=== PATIENT | male | born 1995 | race Caucasian/White ===

== ENCOUNTER 2018-05-17 14:04 | Emergency (ER) | payer SELFPAY ==
[2018-05-17 14:09] VITALS: BP 161/115; PULSE 90; RESP 17; TEMP 36.1; O2SAT 100
--- NOTE | 2018-05-17 15:07 | PC.NURSE ---
pt reports he has been depressed before and has had thoughts of how he could kill himself but he doesn't want to act on it. It feels like I am losing my mind. I've been depressed before but never this bad. pt denies hallucinations and delusions.
[2018-05-17 15:55] LABS: Add Manual Diff / Slide Review NO; Basophils Absolute Auto 100 /uL (0-100); Eosinophils Absolute Auto 300 /uL (0-450); Hematocrit 43.4 % (41-53); Hemoglobin 14.7 g/dL (13.5-17.5); Lymphocytes Absolute Auto 1900 /uL (1100-4500); Mean Corpuscular HGB Conc 33.9 % (30-36); Mean Corpuscular Hemoglobin 28.9 PG (26-34); Mean Corpuscular Volume 85.3 fL (80-100); Monocytes Absolute Auto 400 /uL (0-900); Neutrophils Absolute Auto 3900 /uL (1500-7000); Platelet Count 290 X10^3/uL (150-400); Red Blood Cell Count 5.09 X10^6/uL (4.5-5.9); Red Cell Distribution Width 13.5 % (11.6-14.8); White Blood Cell Count 6.7 X10^3/uL (4.5-11.0)
[2018-05-17 15:59] LABS: Acetaminophen < 10 ug/mL (10-30); Salicylate < 1.0 mg/dL (<20)
[2018-05-17 16:00] LABS: Alanine Aminotransferase 61 IU/L (21-72); Albumin 4.8 g/dL (3.5-5.0); Albumin Globulin Ratio 1.2 (1.0-2.8); Alkaline Phosphatase 94 U/L (38-126); Aspartate Aminotransferase 35 IU/L (17-59); BUN Creatinine Ratio 18.8 (6-22); Bilirubin Total 0.7 mg/dL (0.2-1.3); Blood Urea Nitrogen 15 mg/dL (9-20); Calcium 9.9 mg/dL (8.4-10.2); Carbon Dioxide 22 mmol/L (22-32); Chloride 102 mmol/L (98-107); Estimated Glomerular Filt Rate > 60.0 mL/min (>60); Ethanol (ETOH) < 10 mg/dL; Globulin 3.9 g/dL (1.7-4.1); Glucose 103 mg/dL (70-100); HEMOLYSIS < 15 (0-50); Potassium 4.4 mmol/L (3.4-5.1); Sodium 139 mmol/L (137-145); Total Protein 8.7 g/dL (6.3-8.2)
[2018-05-17] MEDS: ACETAMINOPHEN 325 MG TABLET 975 MG PO (16:06)
--- NOTE | 2018-05-17 16:15 | ED.PSYCH ---
HPI - Psych General Chief Complaint: Psychiatric Symptoms Stated Complaint: anxiety,emotional, pressure in head, spacy Time Seen by Provider: 05/17/18 15:58 Source: patient and family ( Significant other) Mode of arrival: ambulatory Limitations: no limitations History of Present Illness HPI Narrative: this is a 22-year-old male who comes to the emergency department with complaint of depression and suicidal thoughts. Patient states he does not wish to hurt or kill himself but couple days ago started having depressive symptoms. patient states he has had some issues with depression in the past but this was significantly more intense and for the last 3 or 4 days has felt much more depressed and tearful and not been able to improve. Patient had seen a counselor in the past when he was 10 or 11 after his mother from suicide. He has lost several family members. He does see speak with and see his grandmother regularly for emotional support. He also has a significant other who is in the room with him. Patient states that he has had thoughts about killing himself he does not have any distinct plan. He denies any wish to hurt himself and is coming in because he is having these thoughts and they are becoming more frequent. Patient isn't sure that he wants to take any medication, some he wants to just make sure that medically he is okay. He is not sure about any counseling at this time. He is also not insured currently so be difficult for him to have counseling. Related Data Previous Rx's Medication Instructions Recorded quetiapine [Seroquel] 12.5 mg PO BEDTIME #7 tab 05/17/18 Allergies Allergy/AdvReac Type Severity Reaction Status Date / Time No Known Drug Allergies Allergy Verified 05/17/18 17:39 Review of Systems Psychiatric Reports as per HPI, Reports depression, Denies auditory hallucinations, Reports hopelessness, Denies irritability, Reports anhedonia, Denies mood swings, Reports panic attacks, Denies paranoia, Denies visual hallucinations, Denies hallucinations, Denies tactile hallucinations, Denies homicidal ideation and Reports suicidal ideation PFS Social History Smoking Status: Former smoker alcohol intake: current substance use type: marijuana Exam Narrative Exam Narrative: GENERAL: Alert and oriented x three, obese male in mild distress. Patient is is intermittently tearful. HEENT: Head normocephalic, atraumatic, EOMI, pupils reactive, face symmetric, moist mucous membranes NECK: Supple, full range of motion CARDIOVASCULAR: Regular rate and rhythm without murmurs, rubs or gallops. RESPIRATORY: Breath sounds equal bilaterally, no wheezes rales or rhonchi. ABDOMEN: Soft, nontender. Normoactive bowel sounds all 4 quadrants. No guarding or rebound, rigidity, no mass : No CVA tenderness EXTREMITIES: Normal range of motion, no clubbing or edema. Neurovascularly intact Psych: depression, suicidal thoughts but no intent, no homicidal thoughts or intent, mild anxiety. Denies hallucinations tactile, visual or auditory. NEUROLOGICAL: Cranial nerves II through XII grossly intact. Moving all extremities SKIN: Warm, dry, no petechiae, no rashes or lesions. Initial Vital Signs Initial Vital Signs: Vital Signs Temperature 97 F L 05/17/18 14:09 Pulse Rate 90 05/17/18 14:09 Respiratory Rate 17 05/17/18 14:09 Blood Pressure 161/115 H 05/17/18 14:09 Pulse Oximetry 100 05/17/18 14:09 Course Orders Ordered: ED Orders 05/17/18 15:21 Consult to Circuit Tester Stat 05/17/18 15:35 Acetaminophen Stat Complete Blood Count AUTO DIFF Stat Comprehensive Metabolic Panel Stat Ethanol (ETOH) Stat Salicylate Stat Thyroid Stimulating Hormone Stat 05/17/18 16:45 Urine Drug Screen, Rapid Stat Urine Microscopic Stat Discontinued Medications Acetaminophen (Tylenol) 975 mg PO NOW ONE Stop: 05/17/18 15:43 Last Admin: 05/17/18 16:06 Dose: 975 mg Quetiapine Fumarate (Seroquel) 12.5 mg PO NOW ONE Stop: 05/17/18 16:16 Last Admin: 05/17/18 16:23 Dose: 12.5 mg Vital Signs - 8 hr 05/17/18 14:09 05/17/18 17:50 Temperature 97 F L Pulse Rate 90 86 Respiratory Rate 17 20 Blood Pressure 161/115 H Blood Pressure [Left Arm] 150/79 H Pulse Oximetry 100 96 MDM - Psych Lab Data Attestation: I reviewed the patient's lab results. Result diagrams: 05/17/18 15:35 05/17/18 15:35 Lab Results 05/17/18 05/17/18 05/17/18 Range/Units 15:35 15:35 15:35 WBC 6.7 (4.5-11.0) X10^3/uL RBC 5.09 (4.5-5.9) X10^6/uL Hgb 14.7 (13.5-17.5) g/dL Hct 43.4 (41-53) % MCV 85.3 (80-100) fL MCH 28.9 (26-34) PG MCHC 33.9 (30-36) % RDW 13.5 (11.6-14.8) % Plt Count 290 (150-400) X10^3/uL Neut % (Auto) 59.0 (50-75) % Lymph % (Auto) 29.0 (25-40) % [place] % (Auto) 6.0 (3-14) % Eos % (Auto) 5.0 H (2-4) % Baso % (Auto) 1.0 (0-2) % Neut # (Auto) 3900 (3497-0892) /uL Lymph # (Auto) 1900 (0028-4387) /uL [place] # (Auto) 400 (0-900) /uL Eos # (Auto) 300 (0-450) /uL Baso # (Auto) 100 (0-100) /uL Sodium 139 (137-145) mmol/L Potassium 4.4 (3.4-5.1) mmol/L Chloride 102 (98-107) mmol/L Carbon Dioxide 22 (22-32) mmol/L BUN 15 (9-20) mg/dL Creatinine 0.80 (0.66-1.25) mg/dL Estimated GFR > 60.0 (>60) mL/min BUN/Creatinine Ratio 18.8 (6-22) Glucose 103 H (70-100) mg/dL Calcium 9.9 (8.4-10.2) mg/dL Total Bilirubin 0.7 (0.2-1.3) mg/dL AST 35 (17-59) IU/L ALT 61 (21-72) IU/L Alkaline Phosphatase 94 (38-126) U/L Total Protein 8.7 H (6.3-8.2) g/dL Albumin 4.8 (3.5-5.0) g/dL Globulin 3.9 (1.7-4.1) g/dL Albumin/Globulin Ratio 1.2 (1.0-2.8) TSH (0.47-4.68) uIU/mL Urine RBC (0-5/HPF) Urine WBC (0-5/HPF) Urine Bacteria (None) Ur Culture Indicated? Salicylates < 1.0 (<20) mg/dL Urine Opiates Screen (Negative) Ur Oxycodone Screen (Negative) Urine Methadone Screen (Negative) Acetaminophen < 10 L (10-30) ug/mL Ur Barbiturates Screen (Negative) U Tricyclic Antidepress (Negative) Ur Phencyclidine Scrn (Negative) Ur Amphetamines Screen (Negative) U Methamphetamines Scrn (Negative) Ur MDMA Scrn (Ecstasy) (Negative) U Benzodiazepines Scrn (Negative) Urine Cocaine Screen (Negative) U Marijuana (THC) Screen (Negative) Ethyl Alcohol < 10 mg/dL 05/17/18 05/17/18 05/17/18 Range/Units 15:35 16:45 16:45 WBC (4.5-11.0) X10^3/uL RBC (4.5-5.9) X10^6/uL Hgb (13.5-17.5) g/dL Hct (41-53) % MCV (80-100) fL MCH (26-34) PG MCHC (30-36) % RDW (11.6-14.8) % Plt Count (150-400) X10^3/uL Neut % (Auto) (50-75) % Lymph % (Auto) (25-40) % [place] % (Auto) (3-14) % Eos % (Auto) (2-4) % Baso % (Auto) (0-2) % Neut # (Auto) (5261-9962) /uL Lymph # (Auto) (6340-9207) /uL [place] # (Auto) (0-900) /uL Eos # (Auto) (0-450) /uL Baso # (Auto) (0-100) /uL Sodium (137-145) mmol/L Potassium (3.4-5.1) mmol/L Chloride (98-107) mmol/L Carbon Dioxide (22-32) mmol/L BUN (9-20) mg/dL Creatinine (0.66-1.25) mg/dL Estimated GFR (>60) mL/min BUN/Creatinine Ratio (6-22) Glucose (70-100) mg/dL Calcium (8.4-10.2) mg/dL Total Bilirubin (0.2-1.3) mg/dL AST (17-59) IU/L ALT (21-72) IU/L Alkaline Phosphatase (38-126) U/L Total Protein (6.3-8.2) g/dL Albumin (3.5-5.0) g/dL Globulin (1.7-4.1) g/dL Albumin/Globulin Ratio (1.0-2.8) TSH 1.21 (0.47-4.68) uIU/mL Urine RBC 5-10/hpf H (0-5/HPF) Urine WBC None seen (0-5/HPF) Urine Bacteria None seen (None) Ur Culture Indicated? Cult not indicated Salicylates (<20) mg/dL Urine Opiates Screen Negative (Negative) Ur Oxycodone Screen Negative (Negative) Urine Methadone Screen Negative (Negative) Acetaminophen (10-30) ug/mL Ur Barbiturates Screen Negative (Negative) U Tricyclic Antidepress Negative (Negative) Ur Phencyclidine Scrn Negative (Negative) Ur Amphetamines Screen Negative (Negative) U Methamphetamines Scrn Negative (Negative) Ur MDMA Scrn (Ecstasy) Negative (Negative) U Benzodiazepines Scrn Positive H (Negative) Urine Cocaine Screen Negative (Negative) U Marijuana (THC) Screen Positive H (Negative) Ethyl Alcohol mg/dL Urine Dip Bedside Urine Glucose Negative Bedside Urine Bilirubin - Negative Bedside Urine Ketone - Negative Urine Specific [place] 1.030 Bedside Urine Occult Blood ++ Bedside Urine pH 5.5 Bedside Urine Protein +/- 15 Bedside Urine Urobilinogen - Negative Bedside Urine Nitrite - Negative Bedside Urine Leukocytes - Negative Esterase MDM Narrative Medical decision making narrative: the patient is having suicidal thoughts but no intent and is expressly clear that he does not wish to kill himself which is why he came today. Basic blood work does not show any acute changes , it was positive for benzos and THC which patient stated he has both used recently.. Patient had I did discuss and he was willing to try some Seroquel 12.5 mg which he did find a bit helpful. We discussed trying this for short-term as an outpatient as other medications such as an SSRI take several weeks and I think this patient would benefit something a little bit quicker. He was given some coupons as they do not have insurance at this time. Patient also was counseled by the community mental health social worker here in the emergency department and setup with the CPAP 18 which he has already contacted on set up for follow-up tomorrow. Patient is also willing to contract for safety and to return. He does have firearms in the home they are locked up and he is willing to give the only mulligan to his or his grandmother who lives outside the home. He also drinks fairly regularly and we discussed that he is trying to decrease the amount of alcohol he is drinking currently. At this time they patient and his feel that he is safe to return and he is aware that he can return here at any time, he can contact the CP team or the suicide hotline which is also the [facility] number. Discharge Plan Departure Patient Disposition: Home Clinical Impression: Suicidal ideation, Depression Discharge Date/Time: 05/17/18 18:52 Interventions: ED Discharge Assessment Last Done: 05/17/18 18:50 Instructions: DI for Suicidal Ideation-Adult Activity Restrictions/Additional Instructions: Follow up with the CP team for your appointment. Call to verify her appointment time as needed take Seroquel once daily before bed. This medication can be sedating do not drive, perform hazards activities or make any major decisions while taking it. Return to the emergency department if you are having worsening depression, if you are having the thoughts or urge to hurt or kill yourself, hurt or kill others or other new or concerning symptoms, if you are having any hallucinations or other new changes. If you're feeling suicidal or having suicidal thoughts, contact the suicide hotline: . Prescriptions: New quetiapine [Seroquel] 25 mg tablet 12.5 mg PO BEDTIME Qty: 7 RF: 0
--- NOTE | 2018-05-17 16:19 | ED_ITS ---
HPI - Psych General Chief Complaint: Psychiatric Symptoms Stated Complaint: anxiety,emotional, pressure in head, spacy Time Seen by Provider: 05/17/18 15:58 Source: patient and family ( Significant other) Mode of arrival: ambulatory Limitations: no limitations History of Present Illness HPI Narrative: this is a 22-year-old male who comes to the emergency department with complaint of depression and suicidal thoughts. Patient states he does not wish to hurt or kill himself but couple days ago started having depressive symptoms. patient states he has had some issues with depression in the past but this was significantly more intense and for the last 3 or 4 days has felt much more depressed and tearful and not been able to improve. Patient had seen a counselor in the past when he was 10 or 11 after his mother from suicide. He has lost several family members. He does see speak with and see his gr andmother regularly for emotional support. He also has a significant other who is in the room with him. Patient states that he has had thoughts about killing himself he does not have any distinct plan. He denies any wish to hurt himself and is coming in because he is having these thoughts and they are becoming more frequent. Patient isn't sure that he wants to take any medication, some he want s to just make sure that medically he is okay. He is not sure about any counseling at this time. He is also not insured currently so be difficult for him to have counseling. Related Data Previous Rx's Medication Instructions Recorded quetiapine [Seroquel] 12.5 mg PO BEDTIME #7 tab 05/17/18 Allergies Allergy/AdvReac Type Severity Reaction Status Date / Time No Known Drug Allergies Allergy Verified 05/17/18 17:39 Review of Systems Psychiatric Reports as per HPI, Reports depression, Denies auditory hallucinations, Reports hopelessness, Denies irritability, Reports anhedonia, Denies mood swings, Reports panic attacks, Denies paranoia, Denies visual hallucinations, Denies hallucinations, Denies tactile hallucinations, Denies homicidal ideation and Reports suicidal ideation PFS Social History Smoking Status: Former smoker alcohol intake: current substance use type: marijuana Exam Narrative Exam Narrative: GENERAL: Alert and oriented x three, obese male in mild distress. Patient is is intermittently tearful. HEENT: Head normocephalic, atraumatic, EOMI, pupils reactive, face symmetric, moist mucous membranes NECK: Supple, full range of motion CARDIOVASCULAR: Regular rate and rhythm without murmurs, rubs or gallops. RESPIRATORY: Breath sounds equal bilaterally, no wheezes rales or rhonchi. ABDOMEN: Soft, nontender. Normoactive bowel sounds all 4 quadrants. No guarding or rebound, rigidity, no mass : No CVA tenderness EXTREMITIES: Normal range of motion, no clubbing or edema. Neurovascularly intact Psych: depression, suicidal thoughts but no intent, no homicidal thoughts or intent, mild anxiety. Denies hallucinations tactile, visual or auditory. NEUROLOGICAL: Cranial nerves II through XII grossly intact. Moving all extr emities SKIN: Warm, dry, no petechiae, no rashes or lesions. Initial Vital Signs Initial Vital Signs: Vital Signs Temperature 97 F L 05/17/18 14:09 Pulse Rate 90 05/17/18 14:09 Respiratory Rate 17 05/17/18 14:09 Blood Pressure 161/115 H 05/17/18 14:09 Pulse Oximetry 100 05/17/18 14:09 Course Orders Ordered: ED Orders 05/17/18 15:21 Consult to Spare Parts Clerk Stat 05/17/18 15:35 Acetaminophen Stat Complete Blood Count AUTO DIFF Stat Comprehensive Metabolic Panel Stat Ethanol (ETOH) Stat Salicylate Stat Thyroid Stimulating Hormone Stat 05/17/18 16:45 Urine Drug Screen, Rapid Stat Urine Microscopic Stat Discontinued Medications Acetaminophen (Tylenol) 975 mg PO NOW ONE Stop: 05/17/18 15:43 Last Admin: 05/17/18 16:06 Dose: 975 mg Quetiapine Fumarate (Seroquel) 12.5 mg PO NOW ONE Stop: 05/17/18 16:16 Last Admin: 05/17/18 16:23 Dose: 12.5 mg Vital Signs - 8 hr 05/17/18 14:09 05/17/18 17:50 Temperature 97 F L Pulse Rate 90 86 Respiratory Rate 17 20 Blood Pressure 161/115 H Blood Pressure [Left Arm] 150/79 H Pulse Oximetry 100 96 MDM - Psych Lab Data Attestation: I reviewed the patient's lab results. Result diagrams: 05/17/18 15:35 05/17/18 15:35 Lab Results 05/17/18 05/17/18 05/17/18 Range/Units 15:35 15:35 15:35 WBC 6.7 (4.5-11.0) X10^3/uL RBC 5.09 (4.5-5.9) X10^6/uL Hgb 14.7 (13.5-17.5) g/dL Hct 43.4 (41-53) % MCV 85.3 (80-100) fL MCH 28.9 (26-34) PG MCHC 33.9 (30-36) % RDW 13.5 (11.6-14.8) % Plt Count 290 (150-400) X10^3/uL Neut % (Auto) 59.0 (50-75) % Lymph % (Auto) 29.0 (25-40) % [place] % (Auto) 6.0 (3-14) % Eos % (Auto) 5.0 H (2-4) % Baso % (Auto) 1.0 (0-2) % Neut # (Auto) 3900 (7510-4839) /uL Lymph # (Auto) 1900 (1718-9654) /uL [place] # (Auto) 400 (0-900) /uL Eos # (Auto) 300 (0-450) /uL Baso # (Auto) 100 (0-100) /uL Sodium 139 (137-145) mmol/L Potassium 4.4 (3.4-5.1) mmol/L Chloride 102 (98-107) mmol/L Carbon Dioxide 22 (22-32) mmol/L BUN 15 (9-20) mg/dL Creatinine 0.80 (0.66-1.25) mg/dL Estimated GFR > 60.0 (>60) mL/min BUN/Creatinine Ratio 18.8 (6-22) Glucose 103 H (70-100) mg/dL Calcium 9.9 (8.4-10.2) mg/dL Total Bilirubin 0.7 (0.2-1.3) mg/dL AST 35 (17-59) IU/L ALT 61 (21-72) IU/L Alkaline Phosphatase 94 (38-126) U/L Total Protein 8.7 H (6.3-8.2) g/dL Albumin 4.8 (3.5-5.0) g/dL Globulin 3.9 (1.7-4.1) g/dL Albumin/Globulin Ratio 1.2 (1.0-2.8) TSH (0.47-4.68) uIU/mL Urine RBC (0-5/HPF) Urine WBC (0-5/HPF) Urine Bacteria (None) Ur Culture Indicated? Salicylates < 1.0 (<20) mg/dL Urine Opiates Screen (Negative) Ur Oxycodone Screen (Negative) Urine Methadone Screen (Negative) Acetaminophen < 10 L (10-30) ug/mL Ur Barbiturates Screen (Negative) U Tricyclic Antidepress (Negative) Ur Phencyclidine Scrn (Negative) Ur Amphetamines Screen (Negative) U Methamphetamines Scrn (Negative) Ur MDMA Scrn (Ecstasy) (Negative) U Benzodiazepines Scrn (Negative) Urine Cocaine Screen (Negative) U Marijuana (THC) Screen (Negative) Ethyl Alcohol < 10 mg/dL 05/17/18 05/17/18 05/17/18 Range/Units 15:35 16:45 16:45 WBC (4.5-11.0) X10^3/uL RBC (4.5-5.9) X10^6/uL Hgb (13.5-17.5) g/dL Hct (41-53) % MCV (80-100) fL MCH (26-34) PG MCHC (30-36) % RDW (11.6-14.8) % Plt Count (150-400) X10^3/uL Neut % (Auto) (50-75) % Lymph % (Auto) (25-40) % [place] % (Auto) (3-14) % Eos % (Auto) (2-4) % Baso % (Auto) (0-2) % Neut # (Auto) (6324-1987) /uL Lymph # (Auto) (9325-9754) /uL [place] # (Auto) (0-900) /uL Eos # (Auto) (0-450) /uL Baso # (Auto) (0-100) /uL Sodium (137-145) mmol/L Potassium (3.4-5.1) mmol/L Chloride (98-107) mmol/L Carbon Dioxide (22-32) mmol/L BUN (9-20) mg/dL Creatinine (0.66-1.25) mg/dL Estimated GFR (>60) mL/min BUN/Creatinine Ratio (6-22) Glucose (70-100) mg/dL Calcium (8.4-10.2) mg/dL Total Bilirubin (0.2-1.3) mg/dL AST (17-59) IU/L ALT (21-72) IU/L Alkaline Phosphatase (38-126) U/L Total Protein (6.3-8.2) g/dL Albumin (3.5-5.0) g/dL Globulin (1.7-4.1) g/dL Albumin/Globulin Ratio (1.0-2.8) TSH 1.21 (0.47-4.68) uIU/mL Urine RBC 5-10/hpf H (0-5/HPF) Urine WBC None seen (0-5/HPF) Urine Bacteria None seen (None) Ur Culture Indicated? Cult not indicated Salicylates (<20) mg/dL Urine Opiates Screen Negative (Negative) Ur Oxycodone Screen Negative (Negative) Urine Methadone Screen Negative (Negative) Acetaminophen (10-30) ug/mL Ur Barbiturates Screen Negative (Negative) U Tricyclic Antidepress Negative (Negative) Ur Phencyclidine Scrn Negative (Negative) Ur Amphetamines Screen Negative (Negative) U Methamphetamines Scrn Negative (Negative) Ur MDMA Scrn (Ecstasy) Negative (Negative) U Benzodiazepines Scrn Positive H (Negative) Urine Cocaine Screen Negative (Negative) U Marijuana (THC) Screen Positive H (Negative) Ethyl Alcohol mg/dL Urine Dip Bedside Urine Glucose Negative Bedside Urine Bilirubin - Negative Bedside Urine Ketone - Negative Urine Specific [place] 1.030 Bedside Urine Occult Blood ++ Bedside Urine pH 5.5 Bedside Urine Protein +/- 15 Bedside Urine Urobilinogen - Negative Bedside Urine Nitrite - Negative Bedside Urine Leukocytes - Negative Esterase MDM Narrative Medical decision making narrative: the patient is having suicidal thoughts but no intent and is expressly clear that he does not wish to kill himself which is why he came today. Basic blood work does not show any acute changes , it was positive for benzos and THC which patient stated he has both used recently.. Patient had I did discuss and he was willing to try some Seroquel 12.5 mg which he did find a bit helpful. We discussed trying this for short-term as an outpatient as other medications such as an SSRI take several weeks and I think this patient would benefit something a little bit quicker. He was given some coupons as they do not have insurance at this time. Patient also was counseled by the social work supervisor here in the emergency department and setup with the CPAP 18 which he has already contacted on set up for follow-up tomorrow. Patient is also willing to contract for safety and to return. He does have firearms in the home they are locked up and he is willing to give the only mulligan to his or his grandmother who lives outside the home. He also drinks fairly regularly and we discussed that he is trying to decrease the amount of alcohol he is drinking currently. At this time they patient and his feel that he is safe to return and he is aware that he can return here at any time, he can contact the CP team or the suicide hotline which is also the [facility] number. Discharge Plan Departure Patient Disposition: Home Clinical Impression: Suicidal ideation, Depression Discharge Date/Time: 05/17/18 18:52 Interventions: ED Discharge Assessment Last Done: 05/17/18 18:50 Instructions: DI for Suicidal Ideation-Adult Activity Restrictions/Additional Instructions: Follow up with the CP team for your appointment. Call to verify her appoi ntment time as needed take Seroquel once daily before bed. This medication can be sedating do not drive, perform hazards activities or make any major decisions while taking it. Return to the emergency department if you are having worsening depression, if you are having the thoughts or urge to hurt or kill yourself, hurt or kill others or other new or concerning symptoms, if you are having any hallucinations or other new changes. If you're feeling suicidal or having suicidal thoughts, contact the suicide hotline: . Prescriptions: New quetiapine [Seroquel] 25 mg tablet 12.5 mg PO BEDTIME Qty: 7 RF: 0
[2018-05-17] MEDS: QUETIAPINE 25 MG TABLET 12.5 MG PO (16:23)
[2018-05-17 16:41] LABS: Thyroid Stimulating Hormone 1.21 uIU/mL (0.47-4.68)
[2018-05-17 16:56] LABS: Bacteria Urine None Seen; WBC Urine None Seen (0-5/HPF)
[2018-05-17 17:01] LABS: Urine Amphetamines Negative (Negative); Urine Barbiturates Negative (Negative); Urine Benzodiazepines Positive (Negative); Urine Cocaine Negative (Negative); Urine MDMA Negative (Negative); Urine Methadone Negative (Negative); Urine Methamphetamines Negative (Negative); Urine Morphine/Opi cutoff 2000 Negative (Negative); Urine Oxycodone Negative (Negative); Urine Phencyclidine Negative (Negative); Urine Tetrahydrocannabinol Positive (Negative); Urine Tricyclic Antidepressant Negative (Negative)
[2018-05-17 17:04] LABS: Culture Indicated Urine Cult Not Indicated; RBC Urine 5-10/HPF (0-5/HPF)
[2018-05-17 17:50] VITALS: BP 150/79; PULSE 86; RESP 20; O2SAT 96
--- NOTE | 2018-05-17 19:53 | CM.SWNOTE ---
Description: Suicidal Ideation Activity: [employer] met with pt after he presented to the ER for worsening depression and suicial ideation. He denies a plan or intent to harm himself at this time, however felt that he has had thoughts of wanting to for the last 2-days. He stated that he did not want any counseling, and just wanted something to feel better tonight, then go home. He has been having insomnia, and uses both alcohol and cannabis to sleep and relax. He has no insurance, and states that he makes too much money at this job to qualify for Medicaid. He also states that he cannot afford the $100 for [employer]educ[employer]. He does have an aunt that is a chemical dependency counselor, and well as a grandmother as his primary supports. He and his girlfriend reside with her mother, he has no form of transportation at this time. [employer] had recommended f/u with his primary care doctor for antidepressant medication evaluation, however he hasn't had one for several months. His girlfriend reportedly also has significant mental health issues. Grief was an underlying theme due to multiple losses, including pt's mother's by suicide. [employer] provided counseling and encouragement for pt to continue to consider counseling, and assisted him in speaking with the [facility] team while in the ER. Plan: Pt was treated in the ER and discharged home, with the plan for [facility] to call him later tonight, and to meet with pt face to face tomorrow. Pt presented as calm and voiced feeling safe for a home discharge.
== END 2018-05-17 18:52 | disposition home or self-care (01) ==
PROVIDERS: Emergency Provider Emergency Medicine
DX: F32.9 Major depressive disorder, single episode, unspecified (principal); R45.851 Suicidal ideations
CPT/HCPCS: 80053; 80305; 80320; 80329; 81003; 81015; 84443; 85025; 99283; G0480

== ENCOUNTER 2018-05-25 10:02 | Emergency (ER) | payer SELFPAY ==
[2018-05-25 10:11] VITALS: BP 180/117; PULSE 102; RESP 20; TEMP 36.6; O2SAT 95
--- NOTE | 2018-05-25 12:11 | ED.RECABL ---
HPI - Recheck/Abnormal Lab/Rx <Cristina Blair PA-C - Last Filed: 05/25/18 21:40> General Chief Complaint: Recheck/Abnormal Lab/Rx Stated Complaint: medication refill Time Seen by Provider: 05/25/18 12:09 Source: patient Mode of arrival: ambulatory Limitations: no limitations History of Present Illness HPI narrative: This 22-year-old male returns to ED for refill on Seroquel. He was seen here last week with depression and suicidal ideation. He states that he is since learned there are multiple extended family members with depression. His mother committed suicide after multiple attempts but he does not know her specific mental health history, does not know whether any bipolar depression or psychotic disorders in the family. He states that he is significantly improved from last week. He states that he feels like the Seroquel has helped ?level him out?. He states that it helps with his mood swings and anger, and he is able to cope better and think about things more rationally including feeling suicidal. He states that he is sleeping well, maybe some minimal grogginess in the morning but otherwise no side effects. He does not feel like he needs to increase the dose. He he states that he feels like he is significantly improved, not acutely suicidal now, and is actually on the phone with the crisis center when I go to see him. He is continuing to work with them on getting set up with mental health providers as well as primary care (planning to return to [facility] where he was seen in the past). 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 He is hoping to have that set up next week but would like to get a longer refill in case it takes more time to get in to PCP. He denies any new complaints today Related Data Previous Rx's Medication Instructions Recorded quetiapine [Seroquel] 12.5 mg PO BEDTIME #7 tab 05/17/18 quetiapine 25 mg PO BEDTIME #30 tab 05/25/18 Allergies Allergy/AdvReac Type Severity Reaction Status Date / Time No Known Drug Allergies Allergy Verified 05/17/18 17:39 Review of Systems <Cristina Blair PA-C - Last Filed: 05/25/18 21:40> Review of Systems ROS Unobtainable: All systems reviewed & are unremarkable except as noted in HPI and below PFSH <Cristina Blair PA-C - Last Filed: 05/25/18 21:40> Medical History Depression (Chronic) Chronic back pain (Chronic) Surgical History No pertinent past surgical history (Chronic) Family History Mother Depression Social History Smoking Status: Former smoker alcohol intake: current substance use type: marijuana Family History Mother Depression Social History Smoking Status: Former smoker alcohol intake: current substance use type: marijuana Exam <Cristina Blair PA-C - Last Filed: 05/25/18 21:40> Narrative Exam Narrative: GENERAL APPEARANCE: Patient sitting comfortably, in no distress. LUNGS: Clear to auscultation bilaterally. HEART: Rate and rhythm regular without murmur, normal S1 and S2, no S3 or S4. PSYCH: Maintains good eye contact and responds to questions appropriately, normal affect Initial Vital Signs Initial Vital Signs: Vital Signs Temperature 97.8 F 05/25/18 10:11 Pulse Rate 102 H 05/25/18 10:11 Respiratory Rate 20 05/25/18 10:11 Blood Pressure 180/117 H 05/25/18 10:11 Pulse Oximetry 95 05/25/18 10:11 <Terri Lott DO - Last Filed: 05/26/18 07:37> Initial Vital Signs Initial Vital Signs: Vital Signs Temperature 97.8 F 05/25/18 10:11 Pulse Rate 102 H 05/25/18 10:11 Respiratory Rate 20 05/25/18 10:11 Blood Pressure 180/117 H 05/25/18 10:11 Pulse Oximetry 95 05/25/18 10:11 Course <Cristina Blair PA-C - Last Filed: 05/25/18 21:40> Vital Signs - 8 hr 05/25/18 10:11 Temperature 97.8 F Pulse Rate 102 H Respiratory Rate 20 Blood Pressure 180/117 H Pulse Oximetry 95 <Terri Lott DO - Last Filed: 05/26/18 07:37> Vital Signs - 8 hr 05/25/18 10:11 Temperature 97.8 F Pulse Rate 102 H Respiratory Rate 20 Blood Pressure 180/117 H Pulse Oximetry 95 Discharge Plan Departure Patient Disposition: Home Clinical Impression: Encounter for medication refill Depression Qualifiers: Depression Type: unspecified Qualified Code(s): F32.9 - Major depressive disorder, single episode, unspecified Discharge Date/Time: 05/25/18 13:19 Interventions: ED Discharge Assessment Last Done: 05/25/18 13:16 Instructions: DI for Depression -- Adult Activity Restrictions/Additional Instructions: I am glad to see that you are feeling better and that the medicine is helping you. As we talked about, you should return if you start feeling acutely worse or suicidal again. Please make sure you continue to talk with the crisis center coordinators regarding your insurance, and also call the insurance benefits coordinators here at the hospital on Sunday. I have sent in a 1 month prescription for your Quetiapine to [facility] for you as it make take a few more weeks for [facility] to [facility]. Prescriptions: New quetiapine 25 mg tablet 25 mg PO BEDTIME Qty: 30 RF: 0 No Action quetiapine [Seroquel] 25 mg tablet 12.5 mg PO BEDTIME Qty: 7 RF: 0 Referrals: [facility] [Provider Group] <Terri Lott DO - Last Filed: 05/26/18 07:37> [facility] ED Attending Patricia Attestation: I was immediately available in the department for consultation. Documentation has been reviewed. I agree with assessment and plan.
--- NOTE | 2018-05-25 13:05 | ED_ITS ---
HPI - Recheck/Abnormal Lab/Rx <Cristina Blair PA-C - Last Filed: 05/25/18 21:40> General Chief Complaint: Recheck/Abnormal Lab/Rx Stated Complaint: medication refill Time Seen by Provider: 05/25/18 12:09 Source: patient Mode of arrival: ambulatory Limitations: no limitations History of Present Illness HPI narrative: This 22-year-old male returns to ED for refill on Seroquel. He was seen here last week with depression and suicidal ideation. He states that he is since learned there are multiple extended family members with depression. His mother committed suicide after multiple attempts but he does not know her specific mental health history, does not know whether any bipolar depression or psychotic disorders in the family. He states that he is significantly improved from last week. He states that he feels like the Seroquel has helped ?level him out?. He states that it helps with his mood swings and anger, and he is able to cope better and think about things more rationally including feeling suicidal. He states that he is sleeping well, maybe some minimal grogginess in the morning but otherwise no side effects. He does not feel like he needs to increase the dose. He he states that he feels like he is significantly improved, not acutely suicidal now, and is actually on the phone with the crisis center when I go to see him. He is continuing to work with them on getting set up with mental health providers as well as primary care (planning to return to [facility] where he was seen in the past). 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 He is hoping to have that set up next week but would like to get a longer refill in case it takes more time to get in to PCP. He denies any new complaints today Related Data Previous Rx's Medication Instructions Recorded quetiapine [Seroquel] 12.5 mg PO BEDTIME #7 tab 05/17/18 quetiapine 25 mg PO BEDTIME #30 tab 05/25/18 Allergies Allergy/AdvReac Type Severity Reaction Status Date / Time No Known Drug Allergies Allergy Verified 05/17/18 17:39 Review of Systems <Cristina Blair PA-C - Last Filed: 05/25/18 21:40> Review of Systems ROS Unobtainable: All systems reviewed & are unremarkable except as noted in HPI and below PFSH <Cristina Blair PA-C - Last Filed: 05/25/18 21:40> Medical History Depression (Chronic) Chronic back pain (Chronic) Surgical History No pertinent past surgical history (Chronic) Family History Mother Depression Social History Smoking Status: Former smoker alcohol intake: current substance use type: marijuana Family History Mother Depression Social History Smoking Status: Former smoker alcohol intake: current substance use type: marijuana Exam <Cristina Blair PA-C - Last Filed: 05/25/18 21:40> Narrative Exam Narrative: GENERAL APPEARANCE: Patient sitting comfortably, in no distress. LUNGS: Clear to auscultation bilaterally. HEART: Rate and rhythm regular without murmur, normal S1 and S2, no S3 or S4. PSYCH: Maintains good eye contact and responds to questions appropriately, normal affect Initial Vital Signs Initial Vital Signs: Vital Signs Temperature 97.8 F 05/25/18 10:11 Pulse Rate 102 H 05/25/18 10:11 Respiratory Rate 20 05/25/18 10:11 Blood Pressure 180/117 H 05/25/18 10:11 Pulse Oximetry 95 05/25/18 10:11 <Terri Lott DO - Last Filed: 05/26/18 07:37> Initial Vital Signs Initial Vital Signs: Vital Signs Temperature 97.8 F 05/25/18 10:11 Pulse Rate 102 H 05/25/18 10:11 Respiratory Rate 20 05/25/18 10:11 Blood Pressure 180/117 H 05/25/18 10:11 Pulse Oximetry 95 05/25/18 10:11 Course <Cristina Blair PA-C - Last Filed: 05/25/18 21:40> Vital Signs - 8 hr 05/25/18 10:11 Temperature 97.8 F Pulse Rate 102 H Respiratory Rate 20 Blood Pressure 180/117 H Pulse Oximetry 95 <Terri Lott DO - Last Filed: 05/26/18 07:37> Vital Signs - 8 hr 05/25/18 10:11 Temperature 97.8 F Pulse Rate 102 H Respiratory Rate 20 Blood Pressure 180/117 H Pulse Oximetry 95 Discharge Plan Departure Patient Disposition: Home Clinical Impression: Encounter for medication refill Depression Qualifiers: Depression Type: unspecified Qualified Code(s): F32.9 - Major depressive disorder, single episode, unspecified Discharge Date/Time: 05/25/18 13:19 Interventions: ED Discharge Assessment Last Done: 05/25/18 13:16 Instructions: DI for Depression -- Adult Activity Restrictions/Additional Instructions: I am glad to see that you are feeling better and that the medicine is helping you. As we talked about, you should return if you start feeling acutely worse or suicidal again. Please make sure you continue to talk with the crisis center coordinators regarding your insurance, and also call the insurance benefits coordinators here at the hospital on Sunday. I have sent in a 1 month prescription for your Quetiapine to [facility] for you as it make take a few more weeks for you to get in to [facility]. Prescriptions: New quetiapine 25 mg tablet 25 mg PO BEDTIME Qty: 30 RF: 0 No Action quetiapine [Seroquel] 25 mg tablet 12.5 mg PO BEDTIME Qty: 7 RF: 0 Referrals: [facility] [Provider Group] <Terri Lott DO - Last Filed: 05/26/18 07:37> [facility] ED Attending Patricia Attestation: I was immediately available in the department for consultation. Documentation has been reviewed. I agree with assessment and plan.
== END 2018-05-25 13:19 | disposition home or self-care (01) ==
PROVIDERS: Emergency Provider Internal Medicine
DX: Z76.0 Encounter for issue of repeat prescription (principal); F32.9 Major depressive disorder, single episode, unspecified
CPT/HCPCS: 99282

== ENCOUNTER 2018-08-24 12:12 | Emergency (ER) | payer SELFPAY ==
[2018-08-24 12:18] VITALS: BP 160/125; PULSE 88; RESP 14; TEMP 36.6; O2SAT 98; BMI 37.3
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
[2018-08-24] MEDS: ACETAMINOPHEN 325 MG TABLET 975 MG PO (12:46)
[2018-08-24] MEDS: KETOROLAC 60 MG/2 ML VIAL 30 MG IM (12:47)
[2018-08-24] MEDS: SILVER SULFADIAZINE 1% CREAM 25 GM 1 APPLIC TOP (12:47)
--- NOTE | 2018-08-24 14:22 | PC.NURSE ---
silvadene applied to wounds w/ vaseline lj then kerlex wrap. Pt states wounds feel improved after dressing.
[2018-08-24 14:23] VITALS: BP 122/78; PULSE 80; RESP 18; O2SAT 98
== END 2018-08-24 14:25 | disposition home or self-care (01) ==
PROVIDERS: Emergency Provider Nurse Practitioner
DX: L55.1 Sunburn of second degree (principal)
CPT/HCPCS: 96372; 99283; J1885

== ENCOUNTER 2018-09-30 08:51 | Emergency (ER) | payer SELFPAY ==
--- NOTE | 2018-09-30 08:55 | DI.RAD.S_ITS ---
PROCEDURE: XR TOE RT MIN 2V INDICATIONS: pain, swelling, ecchymosis TECHNIQUE: 3 views of the 5th toe(s) acquired. COMPARISON: None. FINDINGS: Bones: No fractures or dislocations. No suspicious bony lesions. Soft tissues: No suspicious soft tissue densities. IMPRESSION: No gross acute fifth toe fracture or dislocation. Dictated by: Abel Shaver M.D. on 09/30/2018 at 9:44 Approved by: Abel Shaver M.D. on 09/30/2018 at 9:50
[2018-09-30 08:56] VITALS: BP 127/79; PULSE 90; RESP 16; TEMP 36.4; O2SAT 96
--- NOTE | 2018-09-30 09:02 | ED.LOWEXIN ---
HPI - Extremity Injury (Lower) General Chief Complaint: Extremity Injury, Lower Stated Complaint: broken pinky toe Time Seen by Provider: 09/30/18 08:55 Source: patient Mode of arrival: ambulatory Limitations: no limitations History of Present Illness HPI Narrative: 23-year-old male occasional smoker with benign medical history presents with a chief complaint of right 5th toe injury. He was getting off a boat yesterday when he stubbed the knee now has pain and swelling. It is worse when he ambulates improves with rest. He denies any numbness, tingling or weakness. MD complaint: foot injury Onset (ago): day(s) Type of Injury: blunt Place: street/outdoors Severity: mild Relieving factors: immobilization Exacerbating factors: weight bearing and movement Context: direct blow Associated symptoms: swelling Other symptoms: none Treatments prior to arrival: cold therapy Related Data Previous Rx's Medication Instructions Recorded quetiapine [Seroquel] 12.5 mg PO BEDTIME #7 tab 05/17/18 quetiapine 25 mg PO BEDTIME #30 tab 05/25/18 codeine sulfate 15 mg PO Q4-6H PRN #6 tab 08/24/18 silver sulfadiazine [Silvadene] 1 applictn TOP DAILY #50 gram 08/24/18 Allergies Allergy/AdvReac Type Severity Reaction Status Date / Time No Known Drug Allergies Allergy Verified 09/30/18 08:59 Review of Systems Constitutional Denies chills, Denies fever(s), Denies lethargy and Denies weakness Eyes Denies change in vision, Denies eye discharge, Denies irritation and Denies loss of vision ENT Ears, Nose, Mouth, and Throat: Denies change in voice, Denies neck pain and Denies sore throat Cardiovascular Denies chest pain, Denies irregular heart rhythm, Denies lightheadedness, Denies palpitations, Denies dyspnea, Denies dyspnea on exertion and Denies orthopnea Respiratory Denies cough, Denies dyspnea, Denies dyspnea on exertion and Denies wheezing Gastrointestinal Gastrointestinal: Denies abdominal pain, Denies change in bowel habits, Denies diarrhea, Denies nausea and Denies vomiting Genitourinary Denies hematuria, Denies flank pain, Denies urinary incontinence and Denies urinary urgency Musculoskeletal Reports joint swelling, Reports limited range of motion and Denies neck pain Integumentary/Breasts Denies pruritus, Denies erythema, Denies rash and Denies wounds Neurologic Denies confusion, Denies loss of vision and Denies weakness Psychiatric Denies anxiety, Denies confusion, Denies depression, Denies homicidal ideation and Denies suicidal ideation Endocrine Denies palpitations Hematologic/Lymphatic Denies easy bruising Allergic/Immunologic Denies wheezing [facility] Medical History Chronic back pain (Chronic) Depression (Inactive) Surgical History No pertinent past surgical history (Chronic) Family History Mother Depression Social History Smoking Status: Former smoker alcohol intake: current substance use type: marijuana Family History Mother Depression Social History Smoking Status: Former smoker alcohol intake: current substance use type: marijuana Exam Narrative Exam Narrative: GEN: 23-year-old male appears stated age AOx3 and in mild distress EYES: Pupils are equal, round, and reactive to light and accommodation. Extraoccular muscles are intact bilaterally. There is no subconjunctival hemorrhage or exudate. CHEST: Lungs are clear to auscultation bilaterally and free of wheezes, rales, or rhonchi. Heart rate is regular rhythm, there are no murmurs, clicks, rubs, or gallops. There is no chest wall tenderness. ABD: Abdomen is soft and nontender. There is no guarding or rebound. Bowel sounds are normal in all 4 quadrants. There is no mass or organomegaly. EXT: Full but painful range of motion of right 5th toe with some swelling and ecchymosis. Close, isolated and neurovascularly intact. SKIN: Warm, pink, and dry. No erythema or rash Initial Vital Signs Initial Vital Signs: Vital Signs Temperature 97.5 F L 09/30/18 08:56 Pulse Rate 90 09/30/18 08:56 Respiratory Rate 16 09/30/18 08:56 Blood Pressure 127/79 09/30/18 08:56 Pulse Oximetry 96 09/30/18 08:56 Procedures Orthopedic Splinting/Casting Injury #1: Side: right Lower Extremity Injury Location: foot Post splinting neuro exam: intact Post splinting vascular exam: intact Placed by: Nursing Course Orders Ordered: ED Orders 09/30/18 08:55 XR toe RT min 2V Stat Discontinued Medications Ibuprofen (Advil) 800 mg PO NOW ONE Stop: 09/30/18 09:05 Last Admin: 09/30/18 09:05 Dose: 800 mg Vital Signs - 8 hr 09/30/18 08:56 Temperature 97.5 F L Pulse Rate 90 Respiratory Rate 16 Blood Pressure 127/79 Pulse Oximetry 96 MDM - Extremity Injury (Lower) Imaging Data Foot Xray: Radiologist's impression: [address] [address] XRay Report Signed Patient: Maximiliano Jc RMR#: [id number] : 1995Acct:[id number] Age/Sex: 23 / MDate of Service: 09/30/18 Loc: ED Accession Number: [id number] Procedure: XR toe RT min 2V Ordering Provider: Oscar Ford D.O. PROCEDURE: XR TOE RT MIN 2V INDICATIONS: pain, swelling, ecchymosis TECHNIQUE: 3 views of the 5th toe(s) acquired. COMPARISON: None. FINDINGS: Bones: No fractures or dislocations. No suspicious bony lesions. Soft tissues: No suspicious soft tissue densities. IMPRESSION: No gross acute fifth toe fracture or dislocation. Dictated by: Abel Shaver M.D. on 09/30/2018 at 9:44 Approved by: Abel Shaver M.D. on 09/30/2018 at 9:50 Discharge Plan Departure Patient Disposition: Home Clinical Impression: Sprain of toe, fifth, right Qualifiers: Encounter type: initial encounter Qualified Code(s): S93.504A - Unspecified sprain of right lesser toe(s), initial encounter Discharge Date/Time: 09/30/18 09:43 Interventions: ED Discharge Assessment Last Done: 09/30/18 09:42 Instructions: DI for Toe Sprain Activity Restrictions/Additional Instructions: *You have been diagnosed with [acute right pinky toe sprain and contusion] *What to do: *Take medications as directed: Tylenol or Motrin for pain *Follow up with your primary care provider in 2-3 days, call for an appointment. Let them know you were seen in the Emergency Department and that we ask that you be seen in follow up *Return to ER if you should have any new, worsening or concerning symptoms Prescriptions: No Action quetiapine [Seroquel] 25 mg tablet 12.5 mg PO BEDTIME Qty: 7 RF: 0 codeine sulfate 15 mg tablet 15 mg PO Q4-6H PRN (Reason: Pain ) Qty: 6 RF: 0 silver sulfadiazine [Silvadene] 1 % cream 1 applictn TOP DAILY Qty: 50 RF: 0 quetiapine 25 mg tablet 25 mg PO BEDTIME Qty: 30 RF: 0 Stand Alone Forms: Work Release Note
[2018-09-30] MEDS: IBUPROFEN 400 MG TABLET 800 MG PO (09:05)
== END 2018-09-30 09:43 | disposition home or self-care (01) ==
PROVIDERS: Emergency Provider Emergency Medicine
DX: S93.504A Unspecified sprain of right lesser toe(s), initial encounter (principal); W22.8XXA Striking against or struck by other objects, initial encounter
CPT/HCPCS: 29550; 73660; 99282; 99283

== ENCOUNTER 2018-11-16 13:20 | Emergency (ER) | payer SELFPAY ==
[2018-11-16 13:25] VITALS: BP 136/88; PULSE 96; RESP 18; TEMP 36.4; O2SAT 98
[2018-11-16] MEDS: ONDANSETRON 4 MG ODT SL (15:11)
[2018-11-16] MEDS: MAG HYDROX/ALUM/SIMETH 30 ML UDC PO (15:15)
[2018-11-16] MEDS: ACETAMINOPHEN 325 MG TABLET 975 MG PO (15:16)
[2018-11-16 16:25] VITALS: BP 144/101; PULSE 81; RESP 14; TEMP 36.4; O2SAT 96
--- NOTE | 2018-11-16 20:07 | ED_ITS ---
HPI - Headache <NAYANA Bran - Last Filed: 11/16/18 20:19> General Chief Complaint: Headache Stated Complaint: sinus pressure,lightheadedness,vomiting Time Seen by Provider: 11/16/18 14:46 Source: patient Mode of arrival: ambulatory Limitations: no limitations History of Present Illness HPI Narrative: This is a 23-year-old male, former smoker, who presents to ED with sinus congestion and discomfort for last 4 days. Patient reports subjective chills, cold sweats, temperature to 99.3 after having 1 episode of T- max of 102 about 3 days ago. Patient denies prolonged discharge from his nose, facial tenderness to palpate or lip redness on his face. Patient reports acidic stomach for last 2 days and reports nausea. Patient had taken NyQuil last couple of nights to help with sleep. Patient states he might have been exposed to ill family member last week with similar symptoms. Patient states he had called in sick at work last 3 days and requesting work notes. Related Data Previous Rx's Medication Instructions Recorded quetiapine [Seroquel] 12.5 mg PO BEDTIME #7 tab 05/17/18 quetiapine 25 mg PO BEDTIME #30 tab 05/25/18 codeine sulfate 15 mg PO Q4-6H PRN #6 tab 08/24/18 silver sulfadiazine [Silvadene] 1 applictn TOP DAILY #50 gram 08/24/18 ondansetron 4 mg PO Q6-8H PRN #5 tab 11/16/18 Allergies Allergy/AdvReac Type Severity Reaction Status Date / Time No Known Drug Allergies Allergy Verified 11/16/18 13:29 Review of Systems <NAYANA Bran - Last Filed: 11/16/18 20:19> Review of Systems Narrative: General: See HPI HEENT: See HPI Respiratory: Denies dyspnea, cough, wheezing, hemoptysis, sputum. Cardiovascular: Denies chest pain, palpitations, orthopnea, edema. Gastrointestinal: See HPI : Denies dysuria, frequency, incontinence, hematuria, urinary retention. Musculoskeletal: Denies weakness, joint pain or bony pain. Skin: Denies rash, skin lesions, or other. Neurologic: Denies weakness, headache, numbness, change in speech, confusion, seizures, incoordination. Psychiatric: No concerning psychosocial issues. 12-point review of systems is negative except for those stated above. PFSH <NAYANA Bran - Last Filed: 11/16/18 20:19> Medical History Chronic back pain (Chronic) Depression (Inactive) Surgical History No pertinent past surgical history (Chronic) Family History Mother Depression Social History Smoking Status: Former smoker alcohol intake: current substance use type: marijuana Family History Mother Depression Social History Smoking Status: Former smoker alcohol intake: current substance use type: marijuana Exam <NAYANA Bran - Last Filed: 11/16/18 20:19> Narrative Exam Narrative: GEN: Alert, oriented x 3, well appearing and nourished, and in no acute distress. Head: Normal cephalic, atraumatic. No scalp or temporal tenderness, palpable mass or rash. EYES: Pupils are equal, round, and reactive to light and accommodation. Extraocular muscles are intact bilaterally. There is no subconjunctival hemorrhage, exudate and sclera non-icteric. ENT: Bilateral auditory canals and tympanic membranes clear. Hearing grossly intact. Nose without bleeding, purulent discharge or deviation. Left turbinate with redness and edema. Facial sinuses nontender to palpate. Mucous membrane moist, no mucosal lesion. Throat without erythema, tonsillar hypertrophy or exudate. Uvula in midline, airway patent. Neck: Trachea in midline. No JVD, non-tender without lymphadenopathy. No masses or thyroid megaly. Supple, non-tender and no meningeal signs. CARDIAC: Normal regular rate and rhythm without murmurs, gallops, or rubs. No chest wall tenderness. No peripheral edema, cyanosis or pallor. Capillary refill is less than 2 seconds. RESPIRATORY: Lungs are cleat to auscultate bilaterally. No cough, wheezes, rales, or rhonchi. No stridor, respiratory distress, increase work of breathing, or accessary muscle used. ABD: Abdomen soft, nontender and non-distended. No guarding or rebound tenderness to palpate. Bowel sounds are normal in all 4 quadrants. There is no palpable masses or organomegaly. EXT: Full painless ROM of all extremities with no loss of sensation, strength, effusion or edema. SKIN: Warm, dry, normal color for patient. No erythema, lesions or rash over visible areas. BACK: Nontender without deformity or crepitance. No flank tenderness. NEUROLOGICAL: Alert and oriented to place, time and person. Sensation and motor function intact bilaterally. No facial droops, dysphasia. PSYCHIATRIC: Good judgement and reason, without hallucinations, abnormal affect or abnormal behaviors during the examination. Initial Vital Signs Initial Vital Signs: Vital Signs Temperature 97.6 F 11/16/18 13:25 Pulse Rate 96 H 11/16/18 13:25 Respiratory Rate 18 11/16/18 13:25 Blood Pressure 136/88 11/16/18 13:25 Pulse Oximetry 98 11/16/18 13:25 <Chanda Power DO - Last Filed: 11/17/18 19:28> Initial Vital Signs Initial Vital Signs: Vital Signs Temperature 97.6 F 11/16/18 13:25 Pulse Rate 96 H 11/16/18 13:25 Respiratory Rate 18 11/16/18 13:25 Blood Pressure 136/88 11/16/18 13:25 Pulse Oximetry 98 11/16/18 13:25 Scores <NAYANA Bran - Last Filed: 11/16/18 20:19> GCS Bushnell coma scale eye opening: Spontaneous Bushnell coma scale verbal response: Orientated Yenny coma scale motor response: Obey commands Yenny coma scale total score: 15 Course <NAYANA Bran - Last Filed: 11/16/18 20:19> Orders Ordered: Discontinued Medications Acetaminophen (Tylenol) 975 mg PO NOW ONE Stop: 11/16/18 15:04 Last Admin: 11/16/18 15:16 Dose: 975 mg Documented by: MARK Gonzalez Hydrox/Mg Hydrox/Simethicone (Maalox Plus) 30 ml PO NOW ONE Stop: 11/16/18 15:04 Last Admin: 11/16/18 15:15 Dose: 30 ml Documented by: MARK Ondansetron HCl (Zofran Odt) 4 mg SL NOW ONE Stop: 11/16/18 15:04 Last Admin: 11/16/18 15:11 Dose: 4 mg Documented by: MARK Ranitidine HCl (Zantac) 150 mg PO NOW ONE Stop: 11/16/18 15:04 Last Admin: 11/16/18 15:16 Dose: 150 mg Documented by: MARK Vital Signs Vital signs: Vital Signs - 8 hr 11/16/18 13:25 11/16/18 16:25 Temperature 97.6 F 97.6 F Pulse Rate 96 H 81 Respiratory Rate 18 14 Blood Pressure 136/88 144/101 H Pulse Oximetry 98 96 <Chanda Power DO - Last Filed: 11/17/18 19:28> Orders Ordered: Discontinued Medications Acetaminophen (Tylenol) 975 mg PO NOW ONE Stop: 11/16/18 15:04 Last Admin: 11/16/18 15:16 Dose: 975 mg Documented by: MARK Al Hydrox/Mg Hydrox/Simethicone (Maalox Plus) 30 ml PO NOW ONE Stop: 11/16/18 15:04 Last Admin: 11/16/18 15:15 Dose: 30 ml Documented by: MARK Ondansetron HCl (Zofran Odt) 4 mg SL NOW ONE Stop: 11/16/18 15:04 Last Admin: 11/16/18 15:11 Dose: 4 mg Documented by: MARK Ranitidine HCl (Zantac) 150 mg PO NOW ONE Stop: 11/16/18 15:04 Last Admin: 11/16/18 15:16 Dose: 150 mg Documented by: MARK Vital Signs Vital signs: Vital Signs - 8 hr 11/16/18 13:25 11/16/18 16:25 Temperature 97.6 F 97.6 F Pulse Rate 96 H 81 Respiratory Rate 18 14 Blood Pressure 136/88 144/101 H Pulse Oximetry 98 96 MDM - Headache <NAYANA Bran - Last Filed: 11/16/18 20:19> Differential Diagnosis Differential diagnosis: Likely sinusitis and other (URI, gastroenteritis) Medical Records Attestation: I reviewed the patient's medical records. [facility] Narrative Medical decision making narrative: This is 23-year-old male with chief complain of sinus congestion and pain and nausea. Patient is nontoxic appearing and afebrile in ED. The physical exam is not consistent with acute bacterial sin usitis. Patient was medicated with Zofran, Maalox, and Tylenol for his symptoms. Patient was able to tolerate p.o. fluid before he was discharged to home. Patient discharged to home with [id number] Zantac and advised to continue to use DayQuil and NyQuil for his congestion and cold symptoms. Patient advised to hydrate well after the Zofran as needed for nausea. Return precautions were discussed with the patient and advised to follow up with walk- in clinic since patient does not have primary care physician or ER. A referral number to [facility] was provided to set up a primary care physician. Patient agrees with treatment plan and no further questions were expressed at this time. Patient provided with work note. Discharge Plan Departure Patient Disposition: Home Clinical Impression: Congestion of nasal sinus Nausea & vomiting Qualifiers: Vomiting type: unspecified Vomiting Intractability: non-intractable Qualified Code(s): R11.2 - Nausea with vomiting, unspecified Discharge Date/Time: 11/16/18 16:26 Instructions: DI for Vomiting -- Adult, DI for Nasal Congestion Activity Restrictions/Additional Instructions: You have been diagnosed with [sinus congestion and nausea vomiting. You were able to tolerate fluids while in ED after the medications. Your L nose appears to be congested without purulent discharge]. What to do: *Take your medications as directed. Please take Zofran as needed for nausea or vomiting which has been transmitted to [facility] in [place]. You can continue to take Day- and NyQuil as needed for cold symptoms and congestion. You can also meat pickler [id number] Zantac for acidic stomach which will help with discomfort. *Follow up with your primary care provider in 2-3 days, call for an appointment. If you do not have primary care physician please find the number that has been provided today to you to help finding primary care physician. He can also utilize walk-in clinic at [place]. Let them know you were seen in the ED and that we asked you to be seen in follow up. *Return to ED if you have any new, worsening, or concerning symptoms, such as [chest pain, breathing difficulty, unable to tolerate fluids, fainting like symptoms, or any acute concerns. ]. Prescriptions: New ondansetron 4 mg tablet,disintegrating 4 mg PO Q6-8H PRN (Reason: nausea and vomiting) Qty: 5 RF: 0 No Action quetiapine [Seroquel] 25 mg tablet 12.5 mg PO BEDTIME Qty: 7 RF: 0 codeine sulfate 15 mg tablet 15 mg PO Q4-6H PRN (Reason: Pain ) Qty: 6 RF: 0 silver sulfadiazine [Silvadene] 1 % cream 1 applictn TOP DAILY Qty: 50 RF: 0 quetiapine 25 mg tablet 25 mg PO BEDTIME Qty: 30 RF: 0 Referrals: [facility] [Outside] Stand Alone Forms: Work Release Note
== END 2018-11-16 16:26 | disposition home or self-care (01) ==
PROVIDERS: Emergency Provider Nurse Practitioner Family
DX: R09.81 Nasal congestion (principal); R11.2 Nausea with vomiting, unspecified
CPT/HCPCS: 99282

== ENCOUNTER 2019-03-28 14:27 | Emergency (ER) | payer SELFPAY ==
[2019-03-28 14:30] VITALS: BP 146/97; PULSE 93; RESP 14; TEMP 36.9; O2SAT 95; BMI 45.1
--- NOTE | 2019-03-28 15:08 | ED_ITS ---
HPI - URI/Sore Throat <NAYANA Bran - Last Filed: 03/28/19 15:49> General Chief Complaint: Upper Respiratory Symptoms Stated Complaint: 'my throat' cough for over a month Time Seen by Provider: 03/28/19 14:28 Source: patient Mode of arrival: Ambulatory Limitations: no limitations History of Present Illness HPI Narrative: This is a 23-year-old male, currently smokes pot and former smoker, who presents to ED with chest congestion and cough. Patient initially had cold symptoms during Mee time last year which has improved. Then, he reports recurring productive green mucus cough, feeling hot and sweaty, sore throat with hoarse voice since yesterday. Patient reports difficulty with expectorated mucus. Patient has history of asthma during childhood and no longer is use albuterol inhaler. No recent antibiotic medication treatment. Patient reports able to tolerate fluids without difficulty. Related Data Previous Rx's Medication Instructions Recorded quetiapine [Seroquel] 12.5 mg PO BEDTIME #7 tab 05/17/18 quetiapine 25 mg PO BEDTIME #30 tab 05/25/18 codeine sulfate 15 mg PO Q4-6H PRN #6 tab 08/24/18 silver sulfadiazine [Silvadene] 1 applictn TOP DAILY #50 gram 08/24/18 ondansetron 4 mg PO Q6-8H PRN #5 tab 11/16/18 albuterol sulfate 2 puff INHALATION Q4-6H PRN #8.5 03/28/19 gram azithromycin 250 mg PO DAILY 4 Days tab 03/28/19 prednisone 40 mg PO DAILY 4 Days #8 tab 03/28/19 Allergies Allergy/AdvReac Type Severity Reaction Status Date / Time No Known Drug Allergies Allergy Verified 03/28/19 14:34 Review of Systems <NAYANA Bran - Last Filed: 03/28/19 15:49> Review of Systems Narrative: General: Denies fever, chills, (+) fatigue, (+) malaise, (+) sweats. HEENT: Denies sinus pain, ear pain, (+) sore throat, (+) see hoarse voice, difficulty swallowing, dizziness. Respiratory: Denies dyspnea, (+) green mucus prodcutive cough, wheezing, hemoptysis, sputum. Cardiovascular: Denies chest pain, palpitations, orthopnea, edema. Gastrointestinal: Denies nausea, vomiting, abdominal pain, diarrhea, constipation, melena. : Denies dysuria, frequency, incontinence, hematuria, urinary retention. Musculoskeletal: Denies weakness, joint pain or bony pain. Skin: Denies rash, skin lesions, or other. Neurologic: Denies weakness, headache, numbness, change in speech, confusion, seizures, incoordination. Psychiatric: No concerning psychosocial issues. 12-point review of systems is negative except for those stated above. Patient History <NAYANA Bran - Last Filed: 03/28/19 15:49> Medical History Chronic back pain (Chronic) Depression (Inactive) Surgical History No pertinent past surgical history (Chronic) Family History Mother Depression Social History Smoking Status: Former smoker alcohol intake: current substance use type: marijuana Smoking Status: Former smoker alcohol intake frequency: 3 or more drinks per day Substance Use Type: marijuana Exam <NAYANA Bran - Last Filed: 03/28/19 15:49> Narrative Exam Narrative: GEN: Alert, oriented x 3, well appearing and nourished, and in no acute distress. Head: Normal cephalic, atraumatic. No scalp or temporal tenderness, palpable mass or rash. EYES: Pupils are equal, round, and reactive to light and accommodation. Extraocular muscles are intact bilaterally. There is no subconjunctival hemorrhage, exudate and sclera non-icteric. ENT: Bilateral auditory canals obscured with cerumen. Hearing grossly intact. Nose without bleeding, purulent discharge or deviation. Facial sinuses nontender to palpate. Mucous membrane moist, no mucosal lesion. Throat without erythema, tonsillar hypertrophy or exudate. Uvula in midline, airway patent. Neck: Trachea in midline. No JVD, non-tender without lymphadenopathy. No masses or thyroid megaly. Supple, non-tender and no meningeal signs. CARDIAC: Normal regular rate and rhythm without murmurs, gallops, or rubs. No chest wall tenderness. No peripheral edema, cyanosis or pallor. Capillary refill is less than 2 seconds. RESPIRATORY: Lungs are wheezing to auscultate bilaterally. No nonproductive cough cough. No stridor, respiratory distress, increase work of breathing, or accessary muscle used. ABD: Abdomen soft, nontender and non-distended. No guarding or rebound tenderness to palpate. Bowel sounds are normal in all 4 quadrants. There is no palpable masses or organomegaly. EXT: Full painless ROM of all extremities with no loss of sensation, strength, effusion or edema. SKIN: Warm, dry, normal color for patient. No erythema, lesions or rash over visible areas. BACK: Nontender without deformity or crepitance. No flank tenderness. NEUROLOGICAL: Alert and oriented to place, time and person. Sensation and motor function intact bilaterally. No facial droops, dysphasia. PSYCHIATRIC: Good judgement and reason, without hallucinations, abnormal affect or abnormal behaviors during the examination. Patient is not suicidal. Initial Vital Signs Initial Vital Signs: Vital Signs Temperature 98.4 F 03/28/19 14:30 Pulse Rate 93 H 03/28/19 14:30 Respiratory Rate 14 03/28/19 14:30 Blood Pressure 146/97 H 03/28/19 14:30 Pulse Oximetry 95 03/28/19 14:30 <Jonnathan Garcia MD - Last Filed: 03/31/19 20:56> Initial Vital Signs Initial Vital Signs: Vital Signs Temperature 98.4 F 03/28/19 14:30 Pulse Rate 93 H 03/28/19 14:30 Respiratory Rate 14 03/28/19 14:30 Blood Pressure 146/97 H 03/28/19 14:30 Pulse Oximetry 95 03/28/19 14:30 Scores <NAYANA Bran - Last Filed: 03/28/19 15:49> GCS [place] coma scale eye opening: Spontaneous [place] coma scale verbal response: Orientated [place] coma scale motor response: Obey commands [place] coma scale total score: 15 Course <Eladio NAYANA Gustafson - Last Filed: 03/28/19 15:49> Orders Ordered: Discontinued Medications Albuterol/Ipratropium (Duoneb) 3 ml INH NOW ONE Stop: 03/28/19 15:07 Last Admin: 03/28/19 15:23 Dose: 3 ml Documented by: LILIAN Azithromycin (Zithromax) 500 mg PO NOW ONE Stop: 03/28/19 15:15 Last Admin: 03/28/19 15:24 Dose: 500 mg Documented by: LILIAN Doxycycline Hyclate (Vibramycin) 100 mg PO NOW ONE Stop: 03/28/19 15:07 Last Admin: 03/28/19 15:25 Dose: Not Given Documented by: LILIAN Prednisone (Deltasone) 40 mg PO NOW ONE Stop: 03/28/19 15:07 Last Admin: 03/28/19 15:23 Dose: 40 mg Documented by: LILIAN Vital Signs Vital signs: Vital Signs - 8 hr 03/28/19 14:30 03/28/19 15:29 Temperature 98.4 F Pulse Rate 93 H Respiratory Rate 14 16 Blood Pressure 146/97 H Pulse Oximetry 95 <Jonnathan Garcia MD - Last Filed: 03/31/19 20:56> Orders Ordered: Discontinued Medications Albuterol/Ipratropium (Duoneb) 3 ml INH NOW ONE Stop: 03/28/19 15:07 Last Admin: 03/28/19 15:23 Dose: 3 ml Documented by: LILIAN Azithromycin (Zithromax) 500 mg PO NOW ONE Stop: 03/28/19 15:15 Last Admin: 03/28/19 15:24 Dose: 500 mg Documented by: LILIAN Doxycycline Hyclate (Vibramycin) 100 mg PO NOW ONE Stop: 03/28/19 15:07 Last Admin: 03/28/19 15:25 Dose: Not Given Documented by: LILIAN Prednisone (Deltasone) 40 mg PO NOW ONE Stop: 03/28/19 15:07 Last Admin: 03/28/19 15:23 Dose: 40 mg Documented by: LILIAN Vital Signs Vital signs: Vital Signs - 8 hr 03/28/19 14:30 03/28/19 15:29 Temperature 98.4 F Pulse Rate 93 H Respiratory Rate 14 16 Blood Pressure 146/97 H Pulse Oximetry 95 MDM - URI/Sore Throat <NAYANA Bran - Last Filed: 03/28/19 15:49> Differential Diagnosis Differential diagnosis: Likely upper respiratory infection, viral infection, bronchitis, pharyngitis and other (Atypical pneumonia) Medical Records Attestation: I reviewed the patient's medical records. Lab Data Attestation: I reviewed the patient's lab results. Labs: Point of Care Testing Rapid Strep A Positive MDM Narrative Medical decision making narrative: Throat exam w/o hypertrophic or erythematous. However, strep POC test was positive. Wheezing to auscultate in bilateral lobes with frequent nonproductive cough while in the ED. patient was treated with nebulizer treatment for wheezing and prednisone 40 mg p.o. and discharged to home with for additional day course. Patient was treated with azithromycin 5 day course due to patient prefers not to take penicillin for strep throat treatment. Patient advised to follow-up with PCP or return to ED after few course of antibiotic medications without improvement and verbalized understanding. Patient advised continue with supportive care with rest and hydration and to take [id number] Tylenol and or Motrin as needed. Patient discharged to home with albuterol inhaler for frequent cough, wheezing, chest tightness. Return precautions were discussed with the patient and patient verbalized understanding and agrees with the treatment plan. <Jonnathan Garcia MD - Last Filed: 03/31/19 20:56> Lab Data Labs: Point of Care Testing Rapid Strep A Positive Discharge Plan Departure Patient Disposition: Home Clinical Impression: Strep throat, Acute upper respiratory infection RAD (reactive airway disease) Qualifiers: Asthma severity: unspecified severity Asthma persistence: unspecified Asthma complication type: uncomplicated Qualified Code(s): J45.909 - Unspecified asthma, uncomplicated Discharge Date/Time: 03/28/19 15:54 Instructions: DI for Strep Throat Activity Restrictions/Additional Instructions: You have been diagnosed with [upper respiratory infection, positive strep throat, reactive airway disease. You were medicated with azithromycin 1st dose here and nebulizer treatment also prednisone.]. What to do: *Take your medications as directed. Please take azithromycin 1 tab for next 4 days daily. Prednisone 40 mg for 4 days. Albuterol inhaler for short of breath, chest tightness, frequent coughing as needed Q 4-6 hours. Albuterol and prednisone has been transmitted to [facility] and you have azithromycin written Rx. *Follow up with your primary care provider in 2-3 days, call for an appointment. Let them know you were seen in the ED and that we asked you to be seen in follow up. If your symptoms not improving after 2-3 days after started antibiotic medication please return to ED or follow with primary care physician. *Return to ED if you have any new, worsening, or concerning symptoms, such as [chest pain, breathing difficulty, unable to tolerate fluids, high fever or any acute concerns]. Prescriptions: New azithromycin 250 mg tablet 250 mg PO DAILY 4 Days RF: 0 albuterol sulfate 90 mcg/actuation HFA aerosol inhaler 2 puff INHALATION Q4-6H PRN (Reason: sob, coughing, wheezing) Qty: 8.5 RF: 0 prednisone 20 mg tablet 40 mg PO DAILY 4 Days Qty: 8 RF: 0 No Action quetiapine [Seroquel] 25 mg tablet 12.5 mg PO BEDTIME Qty: 7 RF: 0 codeine sulfate 15 mg tablet 15 mg PO Q4-6H PRN (Reason: Pain ) Qty: 6 RF: 0 silver sulfadiazine [Silvadene] 1 % cream 1 applictn TOP DAILY Qty: 50 RF: 0 ondansetron 4 mg tablet,disintegrating 4 mg PO Q6-8H PRN (Reason: nausea and vomiting) Qty: 5 RF: 0 quetiapine 25 mg tablet 25 mg PO BEDTIME Qty: 30 RF: 0 Stand Alone Forms: Work Release Note
[2019-03-28] MEDS: ALBUTEROL/IPRATROPIUM 3 ML AMPUL INH (15:23)
[2019-03-28] MEDS: predniSONE 20 MG TABLET 40 MG PO (15:23)
[2019-03-28] MEDS: AZITHROMYCIN 250 MG TABLET 500 MG PO (15:24)
[2019-03-28 15:29] VITALS: RESP 16
[2019-03-28 15:52] VITALS: BP 141/90; PULSE 98; O2SAT 94
== END 2019-03-28 15:54 | disposition home or self-care (01) ==
PROVIDERS: Emergency Provider Nurse Practitioner Family
DX: J02.0 Streptococcal pharyngitis (principal); J45.909 Unspecified asthma, uncomplicated
CPT/HCPCS: 87880; 94640; 99283

== ENCOUNTER → 2019-07-31 10:19 | Outpatient (CLI) | payer OTHER, SELFPAY ==
[2019-08-03 04:26] LABS: COVID19 Sendout Not Detected (Not Detected)
== END ==
PROVIDERS: Visit Provider Registered Nurse
DX: R50.9 Fever, unspecified (principal)
CPT/HCPCS: 87635

== ENCOUNTER 2019-08-27 12:51 | Emergency (ER) | payer SELFPAY ==
[2019-08-27 13:03] VITALS: BP 175/123; PULSE 101; RESP 20; TEMP 36.6; O2SAT 97; BMI 43.0
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
[2019-08-27] MEDS: LIDOCAINE PATCH 1 EACH ADH..PATCH TOP (14:13)
[2019-08-27] MEDS: CYCLOBENZAPRINE 10 MG TABLET PO (14:13)
[2019-08-27] MEDS: KETOROLAC 60 MG/2 ML VIAL IM (14:14)
[2019-08-27] MEDS: HYDROCODONE/ACET 5/325 TABLET 1 TAB PO (15:22)
[2019-08-27 15:47] VITALS: BP 161/98; PULSE 81; RESP 18; O2SAT 96
== END 2019-08-27 15:49 | disposition home or self-care (01) ==
PROVIDERS: Emergency Provider Nurse Practitioner Family
DX: M25.562 Pain in left knee (principal); M54.6 Pain in thoracic spine; M54.5 Low back pain; V89.2XXA Person injured in unspecified motor-vehicle accident, traffic, initial encounter
CPT/HCPCS: 72072; 72100; 73562; 96372; 99283; 99284; J1885

== ENCOUNTER 2020-05-31 09:06 | Emergency (ER) | payer SELFPAY ==
[2020-05-31 09:13] VITALS: BP 140/91; PULSE 90; RESP 20; TEMP 37.2; O2SAT 95
--- NOTE | 2020-05-31 09:30 | ED_ITS ---
HPI - Back Pain/Injury General Chief Complaint: Back Pain/Injury Stated Complaint: LEFT SIDE LOWER BACK PAIN, LEFT LEG NUMBNESS Time Seen by Provider: 05/31/20 09:13 Source: patient Mode of arrival: Ambulatory Limitations: no limitations History of Present Illness HPI Narrative: PATIENT IS A 24-YEAR-OLD MALE WHO PRESENTS WITH LEFT-SIDED BACK PAIN ONGOING FOR ABOUT 5 DAYS. HE DENIES ANY SPECIFIC INJURY ON. HE WENT TO WORK YESTERDAY AND FEELS LIKE HE MAYBE OVERUSED IT. HE OCCASIONALLY GETS NUMBNESS AND TINGLING DOWN HIS LEFT LEG. HE HURTS IN HIS LEFT LATERAL LUMBAR AREA. NO RADIATION TO THE GROIN NO PAINFUL OR FREQUENT URINATION. He took ibuprofen yesterday without any relief. MD Complaint: back pain Duration: constant Related Data Home Medications Medication Instructions Recorded Confirmed ibuprofen 400 mg PO Q6H PRN 05/31/20 05/31/20 Previous Rx's Medication Instructions Recorded cyclobenzaprine 5 mg PO TID PRN #10 tab 05/31/20 Allergies Allergy/AdvReac Type Severity Reaction Status Date / Time No Known Drug Allergies Allergy Verified 05/31/20 09:16 Review of Systems Review of Systems Narrative: GENERAL: Denies chills,fever HEENT: Denies throat pain RESPIRATORY: Denies dyspnea, cough, wheezing CARDIOVASCULAR: Denies chest pain, palpitations GASTROINTESTINAL: Denies nausea, vomiting MUSCULOSKELETAL: + back pain HPI Denies extremity pain, injury SKIN: No rash, no laceration, no pruritus NEUROLOGIC: Denies weakness, dizziness, headache, numbness 8 point review of systems is negative except for those stated above and HPI Patient History Medical History (Updated 05/31/20 @ 09:42 by Terri Lott DO) Chronic back pain Depression Surgical History No pertinent past surgical history Family History Mother Depression Social History Smoking Status: Former smoker alcohol intake: current substance use type: marijuana Smoking Status: Former smoker alcohol intake frequency: 3 or more drinks per day Substance Use Type: marijuana Exam Initial Vital Signs Initial Vital Signs: Vital Signs Temperature 98.9 F 05/31/20 09:13 Pulse Rate 90 05/31/20 09:13 Respiratory Rate 20 05/31/20 09:13 Blood Pressure 140/91 H 05/31/20 09:13 Pulse Oximetry 95 05/31/20 09:13 GENERAL: Overweight well-appearing 24-year-old male and in no acute distress. HEENT: Head atraumatic,EOMI, pupils reactive, face symmetric, moist mucous membranes CARDIOVASCULAR: Regular rate and rhythm without murmurs, rubs or gallops. RESPIRATORY: Breath sounds equal bilaterally, no wheezes rales or rhonchi. ABDOMEN: Soft, nontender. Normoactive bowel sounds all 4 quadrants. No guarding or rebound. BACK: Left lateral lumbar pain no guarding or rebound EXTREMITIES: Normal range of motion, no clubbing or edema. Neurovascularly intact NEUROLOGICAL: Alert and oriented x4.Normal gait and speech. Sensation intact and lower extremities, including medial thigh SKIN: Warm, dry, no laceration, no petechiae, no rashes or lesions. Course Orders Ordered: Discontinued Medications Ketorolac Tromethamine (Ketorolac 60 Mg/2 Ml Vial) 30 mg IM NOW ONE Stop: 05/31/20 09:31 Last Admin: 05/31/20 09:48 Dose: 30 mg Documented by: KD Vital Signs Vital signs: Vital Signs - 8 hr 05/31/20 09:13 05/31/20 10:20 Temperature 98.9 F Pulse Rate 90 87 Respiratory Rate 20 15 Blood Pressure 140/91 H 138/88 Pulse Oximetry 95 99 MDM - Back Pain/Injury MDM Narrative Medical decision making narrative: Patient denies any specific injury but seems to have sciatic pain. He is given a shot of Toradol which seems to help some. He is going to be moving upper next 2 days. I discussed with him no heavy lifting and movement could exacerbate his pain. Discharge Plan Departure Patient Disposition: Home Clinical Impression: Strain of lumbar region Qualifiers: Encounter type: initial encounter Qualified Code(s): S39.012A - Strain of muscle, fascia and tendon of lower back, initial encounter Instructions: DI for Back Pain With Sciatica Activity Restrictions/Additional Instructions: *You have been diagnosed with low back pain with sciatic *What to do: Increase activity as tolerated light activities encouraged to avoid heavy lifting this could exacerbate your pain *Continue to take medications as directed Ibuprofen 800 mg every 8 hours-your next dose is due at 5:00 p.m. Flexeril 5 mg every 8 hours if needed for muscle spasm--> SENT TO [facility] [place] *Follow up with your primary care provider in 2-3 days *Return to ER if you should have increasing pain, weakness of the leg, loss of urine or stool or any new, worsening or concerning symptoms Prescriptions: New cyclobenzaprine 5 mg tablet 5 mg PO TID PRN (Reason: muscle spasm) Qty: 10 RF: 0 No Action ibuprofen 200 mg Capsule 400 mg PO Q6H PRN (Reason: Pain (Scale Score 4-6)) RF: 0 Referrals: [facility] [Outside] Stand Alone Forms: Work Release Note
[2020-05-31] MEDS: KETOROLAC 60 MG/2 ML VIAL 30 MG IM (09:48)
[2020-05-31 10:20] VITALS: BP 138/88; PULSE 87; RESP 15; O2SAT 99
== END 2020-05-31 10:20 | disposition home or self-care (01) ==
PROVIDERS: Emergency Provider Emergency Medicine
DX: S39.012A Strain of muscle, fascia and tendon of lower back, initial encounter (principal); X50.1XXA Overexertion from prolonged static or awkward postures, initial encounter
CPT/HCPCS: 96372; 99283; J1885

== ENCOUNTER 2021-02-07 14:43 | Emergency (ER) | payer SELFPAY ==
[2021-02-07 15:10] VITALS: BP 172/73; PULSE 105; RESP 18; TEMP 37.2; O2SAT 94; BMI 51.6
[2021-02-07 18:19] LABS: Add Manual Diff / Slide Review NO; Basophils Absolute Auto 100 /uL (0-100); Basophils Percent Auto 0.8 % (0-2); Eosinophils Absolute Auto 200 /uL (0-450); Hematocrit 43.4 % (41-53); Hemoglobin 15.1 g/dL (13.5-17.5); Lymphocytes Absolute Auto 2500 /uL (1100-4500); Lymphocytes Percent Auto 27.9 % (25-40); Mean Corpuscular HGB Conc 34.8 % (30-36); Mean Corpuscular Hemoglobin 30.2 PG (26-34); Mean Corpuscular Volume 86.9 fL (80-100); Monocytes Absolute Auto 500 /uL (0-900); Monocytes Percent Auto 6.1 % (3-14); Neutrophils Absolute Auto 5600 /uL (1500-7000); Neutrophils Percent Auto 63.2 % (50-75); Platelet Count 299 X10^3/uL (150-400); Red Blood Cell Count 4.99 X10^6/uL (4.5-5.9); Red Cell Distribution Width 13.3 % (11.6-14.8); White Blood Cell Count 8.9 X10^3/uL (4.5-11.0)
[2021-02-07 18:23] LABS: Alanine Aminotransferase 52 IU/L (<50); Albumin 4.7 g/dL (3.5-5.0); Albumin Globulin Ratio 1.3 (1.0-2.8); Alkaline Phosphatase 84 U/L (38-126); Aspartate Aminotransferase 35 IU/L (17-59); BUN Creatinine Ratio 13.3 (6-22); Bilirubin Total 0.5 mg/dL (0.2-1.3); Blood Urea Nitrogen 13 mg/dL (9-20); Carbon Dioxide 29 mmol/L (22-32); Chloride 101 mmol/L (98-107); Estimated Glomerular Filt Rate > 60.0 mL/min (>60); Globulin 3.7 g/dL (1.7-4.1); Glucose 102 mg/dL (70-100); HEMOLYSIS < 15 (0-50); Lipase 62 U/L (23-300); Potassium 4.1 mmol/L (3.4-5.1); Sodium 136 mmol/L (137-145); Total Protein 8.4 g/dL (6.3-8.2)
[2021-02-07 18:31] LABS: COVID19 -Nasal RAPID Negative (Negative)
[2021-02-07 19:54] LABS: Amorphous Sediment Urine 1+; Bacteria Urine None Seen; Culture Indicated Urine Cult Not Indicated; RBC Urine 1-5/HPF (0-5/HPF); WBC Urine None Seen (0-5/HPF)
== END 2021-02-07 19:17 | disposition left against medical advice (07) ==
PROVIDERS: Emergency Medicine; Emergency Provider Emergency Medicine
DX: Z53.29 Procedure and treatment not carried out because of patient's decision for other reasons (principal)
CPT/HCPCS: 36415; 80053; 81003; 81015; 83690; 85025; 87635; 99283; C9803

== ENCOUNTER 2021-03-25 16:35 | Emergency (ER) | payer OTHER, SELFPAY ==
[2021-03-25 16:45] VITALS: BP 180/100; PULSE 87; RESP 18; TEMP 36.6; O2SAT 95; BMI 50.9
--- NOTE | 2021-03-25 16:49 | DI.RAD.S_ITS ---
PROCEDURE: XR FINGER RT MIN 2V INDICATIONS: Smashed middle finger, pain/swelling TECHNIQUE: AP hand, 2 views of the 3rd finger(s) acquired. COMPARISON: [facility], , FINGER LT, 03/03/2008, 10:45. FINDINGS: Bones: No fractures or dislocations. No suspicious bony lesions. Soft tissues: No suspicious soft tissue calcifications. IMPRESSION: No acute osseous abnormality. Dictated by: Javier Arellano M.D. on 03/25/2021 at 17:28 Approved by: Javier Arellano M.D. on 03/25/2021 at 17:29
--- NOTE | 2021-03-25 17:18 | ED_ITS ---
HPI - Extremity Injury (Upper) <Dillan Spaulding PA-C - Last Filed: 03/25/21 19:08> General Chief Complaint: Extremity Injury, Upper Stated Complaint: SMASHED FINGER ON RIGHT HAND Time Seen by Provider: 03/25/21 17:01 Source: patient Mode of arrival: Ambulatory History of Present Illness HPI narrative: Patient is a 25-year-old male presenting to emergency department today for an evaluation of a right middle finger injury. Patient states that he was at work today when his right middle finger was slammed in between 2 pieces of steel. He states that the injury occurred at approximately 10:00 a.m. this morning. Patient states that he has a small cut on the dorsal aspect of the right middle finger between the PIP and the IP joint. Of note, patient denies injury or pain elsewhere. No fever, chills, chest pain, cough, shortness of breath, nausea, vomiting, diarrhea, abdominal pain, dysuria, hematuria, numbness and tingling in the upper extremities, or any other concerning symptoms reported. No further concerns were voiced at this time. Related Data Home Medications Medication Instructions Recorded Confirmed ibuprofen 200 mg capsule 400 mg PO Q6H PRN 05/31/20 05/31/20 Previous Rx's Medication Instructions Recorded cyclobenzaprine 5 mg tablet 5 mg PO TID PRN #10 tab 05/31/20 Allergies Allergy/AdvReac Type Severity Reaction Status Date / Time No Known Drug Allergies Allergy Verified 03/25/21 16:45 Review of Systems <Dillan Spaulding PA-C - Last Filed: 03/25/21 19:08> Constitutional Constitutional: Denies chills, Denies fatigue, Denies fever(s), Denies frequent falls, Denies lethargy and Denies weakness Eyes Eyes: Denies loss of vision ENT Ears, Nose, Mouth, and Throat: Denies dizziness and Denies neck pain Cardiovascular Cardiovascular: Denies chest pain, Denies irregular heart rhythm, Denies lig htheadedness, Denies palpitations, Denies dyspnea, Denies dyspnea on exertion and Denies orthopnea Respiratory Respiratory: Denies cough, Denies dyspnea, Denies dyspnea on exertion and Denies wheezing Gastrointestinal Gastrointestinal: Denies abdominal pain, Denies change in bowel habits, Denies diarrhea, Denies nausea and Denies vomiting Genitourinary Genitourinary: Denies hematuria, Denies flank pain, Denies urinary incontinence and Denies urinary urgency Musculoskeletal Musculoskeletal: Denies back pain, Denies deformity, Reports arthralgias (Right 3rd finger), Reports joint swelling (Right 3rd finger), Denies muscle weakness, Denies neck pain, Denies numbness and Denies tingling Integumentary/Breasts Skin/Breast: Denies pruritus, Denies erythema, Denies rash and Denies wounds Neurologic Neurologic: Denies behavioral changes, Denies confusion, Denies dizziness, Denies frequent falls, Denies loss of vision, Denies numbness, Denies tingling and Denies weakness Psychiatric Psychiatric: Denies behavioral changes and Denies confusion Endocrine Endocrine: Denies fatigue and Denies palpitations Allergic/Immunologic Allergic/Immunologic: Denies wheezing Patient History <Dillan Spaulding PA-C - Last Filed: 03/25/21 19:08> Medical History (Updated 03/25/21 @ 17:43 by Dillan Spaulding PA-C) Chronic back pain Depression Surgical History No pertinent past surgical history Family History Mother Depression Social History Smoking Status: Former smoker alcohol intake: current substance use type: marijuana Smoking Status: Former smoker alcohol intake frequency: 3 or more drinks per day Alcohol type: beer Substance Use Type: marijuana Exam <Dillan Spaulding PA-C - Last Filed: 03/25/21 19:08> Narrative Exam Narrative: GENERAL: 25 year old patient appears stated age. Well-developed patient, in mild distress. HEAD: Atraumatic. Normocephalic. EYES: Pupils equal round and reactive. Extraocular motions intact. No scleral icterus. No injection or drainage. ENT: Nose without bleeding, purulent drainage. Throat without erythema, tonsillar hypertrophy or exudate. Airway patent. NECK: Trachea midline. Non tender CARDIOVASCULAR: Regular rate and rhythm without murmurs, gallops, or rubs. RESPIRATORY: Clear to auscultation. Breath sounds equal bilaterally. No wheezes, rales, or rhonchi. GASTROINTESTINAL: Abdomen soft, non-tender, nondistended. EXTREMITIES: No edema. Tenderness to palpation noted the right 3rd finger between the PIP and the DIP joints. Finger swollen between the PIP and the DIP with a small laceration noted over the dorsal aspect of the finger. No significant deformity or discharge noted over the finger. BACK: Nontender without deformity or crepitance. No flank tenderness. NEURO: AOx3. SKIN: No rash or erythema of visible areas Initial Vital Signs Initial Vital Signs: Vital Signs Temperature 97.9 F 03/25/21 16:45 Pulse Rate 87 03/25/21 16:45 Respiratory Rate 18 03/25/21 16:45 Blood Pressure 180/100 H 03/25/21 16:45 Pulse Oximetry 95 03/25/21 16:45 <Grayson Newman DO - Last Filed: 03/26/21 07:28> Initial Vital Signs Initial Vital Signs: Vital Signs Temperature 97.9 F 03/25/21 16:45 Pulse Rate 87 03/25/21 16:45 Respiratory Rate 18 03/25/21 16:45 Blood Pressure 180/100 H 03/25/21 16:45 Pulse Oximetry 95 03/25/21 16:45 Course <Dillan Spaulding PA-C - Last Filed: 03/25/21 19:08> Course Course Narrative: X-ray of right fingers obtained. Tdap ordered. Orders Ordered: Discontinued Medications Diphtheria/Tetanus/Acell Pertussis (Tet,Diph,Pertuss(Acell),Vac/Pf 0.5 Ml Syringe) 0.5 ml IM .ONCE ONE Stop: 03/25/21 16:52 Last Admin: 03/25/21 17:27 Dose: 0.5 ml Documented by: MICAELA Ibuprofen (Ibuprofen 400 Mg Tablet) 400 mg PO NOW ONE Stop: 03/25/21 17:40 Last Admin: 03/25/21 17:44 Dose: 400 mg Documented by: LILIAN Vital Signs Vital signs: Vital Signs - 8 hr 03/25/21 16:45 03/25/21 17:51 Temperature 97.9 F Pulse Rate 87 98 H Respiratory Rate 18 18 Blood Pressure 180/100 H 165/105 H Pulse Oximetry 95 99 <DO Suki Alfonso Last Filed: 03/26/21 07:28> Orders Ordered: Discontinued Medications Diphtheria/Tetanus/Acell Pertussis (Tet,Diph,Pertuss(Acell),Vac/Pf 0.5 Ml Syringe) 0.5 ml IM .ONCE ONE Stop: 03/25/21 16:52 Last Admin: 03/25/21 17:27 Dose: 0.5 ml Documented by: MICAELA Ibuprofen (Ibuprofen 400 Mg Tablet) 400 mg PO NOW ONE Stop: 03/25/21 17:40 Last Admin: 03/25/21 17:44 Dose: 400 mg Documented by: LILIAN Vital Signs Vital signs: Vital Signs - 8 hr 03/25/21 16:45 03/25/21 17:51 Temperature 97.9 F Pulse Rate 87 98 H Respiratory Rate 18 18 Blood Pressure 180/100 H 165/105 H Pulse Oximetry 95 99 [facility] - Extremity Injury (Upper) <Dillan Spaulding PA-C - Last Filed: 03/25/21 19:08> Imaging Data Extremity x-ray #1: Radiologist's Impression: PROCEDURE:? XR FINGER RT MIN 2V ? INDICATIONS:? Smashed middle finger, pain/swelling ? TECHNIQUE:? AP hand, 2 views of the 3rd finger(s) acquired.? ? COMPARISON:? [facility], , FINGER LT, 03/03/2008, 10:45. ? FINDINGS:? ? Bones:? No fractures or dislocations.? No suspicious bony lesions.? ? Soft tissues:? No suspicious soft tissue calcifications.? ? IMPRESSION:? No acute osseous abnormality. ? ? Dictated by: Javier Arellano M.D. on 03/25/2021 at 17:28 ? ? Approved by: Javier Arellano M.D. on 03/25/2021 at 17:29 ? [facility] Narrative Medical decision making narrative: To consider fracture versus dislocation versus sprain versus strain. Overall physical examination and history are reassuring. Discussed results of x-ray with patient informed him that no acute bony abnormality was identified. Recommended that the patient keep the right upper extremity elevated above the level of his heart at rest to help alleviate swelling. Additionally, I recommended the patient take Tylenol and ibuprofen at home as needed for pain and to ice the finger as needed. Patient expresses understanding and agrees to plan. At this time he states he would like to be discharged home. Strict return precautions were discussed with the patient prior to discharge. At this time patient is stable and ready for discharge. Discharge Plan Departure Patient Disposition: Home Clinical Impression: Pain of right middle finger Instructions: DI for Finger Sprain Activity Restrictions/Additional Instructions: *You have been diagnosed with acute right middle finger pain, finger sprain *What to do: *Please continue to take your regular medications as directed. [ ] New medication prescriptions sent to your pharmacy: [ ] [ ] New medication written as a paper prescription [X] No new medications given Please keep the right upper extremity elevated above level of the heart when at rest to help alleviate swelling. Tylenol and ibuprofen can be taken home to leave the pain. Additionally, I recommend icing the right middle finger for 15- 20 minutes at a time to help reduce swelling and alleviate pain. Please return to the emergency department if you experience worsening pain, worsening swelling, or any other concerning symptoms. *Please follow up with your primary care provider in 2-3 days, call for an appointment. Let them know you were seen in the Emergency Department and that we ask that you be seen in follow up. We will electronically transmit a record of today's note if your PCP is in our system. *If you do not have a primary care provider please contact the [facility] Resource line at [phone]. They will ask some questions about your medical history and help get you set up with a doctor in the community. *Return to Emergency Department if you should have any new, worsening or concerning symptoms, such as fever greater than 101 F, shaking chills, worsening pain, persistent vomiting or other bothersome symptoms. Prescriptions: No Action ibuprofen 200 mg Capsule 400 mg PO Q6H PRN (Reason: Pain (Scale Score 4-6)) 0RF cyclobenzaprine 5 mg tablet 5 mg PO TID PRN (Reason: muscle spasm) Qty: 10 0RF Referrals: Miscellaneous,DoctorMD [Primary Care Provider] - <Grayson Newman DO - Last Filed: 03/26/21 07:28> Cosign ED Attending Cosignature Attestation: Dr Newamn Co-Sign Statement: I was available for consultation during this patient's emergency department visit. This chart is signed by myself for administrative purposes only. I did not have direct contact with this patient during this visit. They were seen independently by the APC.
[2021-03-25] MEDS: TET,DIPH,PERTUSS(ACELL),VAC/PF 0.5 ML SYRINGE IM (17:27)
[2021-03-25] MEDS: IBUPROFEN 400 MG TABLET PO (17:44)
[2021-03-25 17:51] VITALS: BP 165/105; PULSE 98; RESP 18; O2SAT 99
== END 2021-03-25 17:51 | disposition home or self-care (01) ==
PROVIDERS: Emergency Provider Physician Assistant
DX: S63.632A Sprain of interphalangeal joint of right middle finger, initial encounter (principal); W23.0XXA Caught, crushed, jammed, or pinched between moving objects, initial encounter; Y99.0 Civilian activity done for income or pay; Z23 Encounter for immunization
CPT/HCPCS: 73140; 90471; 99283; 99284; 90715

== ENCOUNTER 2021-09-02 14:15 | Emergency (ER) | payer SELFPAY ==
[2021-09-02 14:41] VITALS: BP 143/83; PULSE 89; RESP 16; TEMP 36.9; O2SAT 99; BMI 50.2
[2021-09-02] MEDS: LIDOCAINE PATCH 1 EACH ADH..PATCH TOP (15:18)
[2021-09-02] MEDS: KETOROLAC 30 MG/ML VIAL 15 MG IM (15:19)
--- NOTE | 2021-09-02 19:44 | ED_ITS ---
HPI - Extremity Injury (Lower) <NAYANA Zurita - Last Filed: 09/02/21 19:50> General Chief Complaint: Extremity Injury, Lower Stated Complaint: Rt Hip/Knee/Ankle Pain Time Seen by Provider: 09/02/21 14:54 History of Present Illness HPI Narrative: This is a 26-year-old obese male who presents to the emergency department saying that he was playing disc golf a few weeks ago when he slipped and had a twisting injury of his right hip and right leg where his right leg went away from his body and he has had pain in his groin, and right leg since. Patient endorses a long history of low back pain, states that the pain in his leg shooting pain, and he says that it comes from his hip. Patient states that he takes ibuprofen for his pain normally, has not taking any medication today. He denies any new weakness, states that he has shooting pain down his leg and some mild back pain that is ongoing. He denies any incontinence, denies any other injuries, denies any open wounds, denies any mobility deficit. Related Data Home Medications Medication Instructions Recorded Confirmed ibuprofen 200 mg capsule 400 mg PO Q6H PRN Pain (Scale 05/31/20 05/31/20 Score 4-6) Previous Rx's Medication Instructions Recorded cyclobenzaprine 5 mg tablet 5 mg PO TID PRN muscle spasm #10 05/31/20 tabs ibuprofen 600 mg tablet 600 mg PO Q8H PRN pain #20 tabs 09/02/21 lidocaine 5 % topical patch 1 patch topical DAILY #15 ea 09/02/21 (Lidoderm) Allergies Allergy/AdvReac Type Severity Reaction Status Date / Time No Known Drug Allergies Allergy Verified 03/25/21 16:45 Review of Systems <NAYANA Zurita - Last Filed: 09/02/21 19:50> Review of Systems Narrative: General: denies fever, chills Head/Neck: denies headache, neck pain Eyes: denies visual changes, eye pain Cardio: denies chest pain, palpitations Respiratory: denies shortness of breath, cough GI: denies abdominal pain, nausea, vomiting, or diarrhea : denies dysuria, hematuria or flank pain MSK: Endorses new right hip and leg pain pain, low back pain, denies muscle weakness or swelling Skin: denies rash, itching or wound Neuro: denies numbness, tingling, dizziness Patient History <NAYANA Zurita - Last Filed: 09/02/21 19:50> Medical History (Updated 09/17/21 @ 00:01 by ) Chronic back pain Depression Surgical History No pertinent past surgical history Family History Mother Depression Social History Smoking Status: Former smoker alcohol intake: current substance use type: marijuana Smoking Status: Former smoker alcohol intake frequency: 3 or more drinks per day Alcohol type: beer Substance Use Type: marijuana Exam <NAYANA Zurita - Last Filed: 09/02/21 19:50> Narrative Exam Narrative: Independently reviewed vitals signs and nursing notes. General: cooperative, comfortable, in no acute distress, well groomed, obese Head: atraumatic, symmetrical facial expressions Neck: supple Eyes: equal round and reactive, EOMI, conjunctiva normal Nose: nares patent, no rhinorrhea Mouth/Throat: moist mucus membranes Cardiovascular: regular rate and rhythm, no peripheral edema, warm extremities Respiratory: normal effort, able to speak in complete sentences, no audible wheezing, stridor, or rales. No retractions or tachypnea. MSK: moves all extremities, neurovascularly intact, no weakness, normal tone, no tenderness along spine, patient endorses tenderness to the paraspinal musculature to the right of his low back with palpation Skin: brisk capillary refill, no rash, no erythema Neuro: normal speech and cognition, A&O x3 Psych: mental status is grossly normal, congruent mood, normal affect, pleasant and cooperative Initial Vital Signs Initial Vital Signs: Vital Signs Temperature 98.5 F 09/02/21 14:41 Pulse Rate 89 09/02/21 14:41 Respiratory Rate 16 09/02/21 14:41 Blood Pressure 143/83 H 09/02/21 14:41 Pulse Oximetry 99 09/02/21 14:41 Oxygen Delivery Method 09/02/21 14:41 <Lalo Blackwell MD - Last Filed: 09/20/21 12:36> Initial Vital Signs Initial Vital Signs: Vital Signs Temperature 98.5 F 09/02/21 14:41 Pulse Rate 89 09/02/21 14:41 Respiratory Rate 16 09/02/21 14:41 Blood Pressure 143/83 H 09/02/21 14:41 Pulse Oximetry 99 09/02/21 14:41 Oxygen Delivery Method 09/02/21 14:41 Course <NAYANA Zurita - Last Filed: 09/02/21 19:50> Orders Ordered: Discontinued Medications Ketorolac Tromethamine (Ketorolac 30 Mg/Ml Vial) 15 mg IM NOW ONE Stop: 09/02/21 15:04 Last Admin: 09/02/21 15:19 Dose: 15 mg Documented By: LULÚ Lidocaine (Lidocaine Patch 1 Each Adh..Patch) 1 each TOP NOW ONE Stop: 09/02/21 15:04 Last Admin: 09/02/21 15:18 Dose: 1 each Documented By: LULÚ Vital Signs Vital signs: Vital Signs - 8 hr 09/02/21 14:41 Temperature 98.5 F Pulse Rate 89 Respiratory Rate 16 Blood Pressure 143/83 H Pulse Oximetry 99 Oxygen Delivery Method Room Air <Lalo Blackwell MD - Last Filed: 09/20/21 12:36> Orders Ordered: Discontinued Medications Ketorolac Tromethamine (Ketorolac 30 Mg/Ml Vial) 15 mg IM NOW ONE Stop: 09/02/21 15:04 Last Admin: 09/02/21 15:19 Dose: 15 mg Documented By: LULÚ Lidocaine (Lidocaine Patch 1 Each Adh..Patch) 1 each TOP NOW ONE Stop: 09/02/21 15:04 Last Admin: 09/02/21 15:18 Dose: 1 each Documented By: LULÚ Vital Signs Vital signs: Vital Signs - 8 hr 09/02/21 14:41 Temperature 98.5 F Pulse Rate 89 Respiratory Rate 16 Blood Pressure 143/83 H Pulse Oximetry 99 Oxygen Delivery Method Room Air MDM - Extremity Injury (Lower) <NAYANA Zurita - Last Filed: 09/02/21 19:50> MDM Narrative Medical decision making narrative: This is a 26-year-old male who presents to the emergency department for low back pain and right leg sciatica symptoms which he states from playing disc golf a few weeks ago. Patient reports that he slipped and fell, had a twisting injury of his right hip and leg and endorses low back pain with shooting pain down his right leg. He denies any weakness, incontinence, mobility deficit or other. Patient did not have any tenderness along his spine to palpation, he had tend erness to the paraspinal musculature adjacent to his lumbar spine. Since this is approximately 3-week-old, there is no imaging indicated, patient does not have any mobility deficit. Strength is equal bilaterally, patient requests a work note because he states that his pain is worse after working a long day and he has been doing this all week. This is most likely a flare of his low back pain with sciatica, encouraged patient to use anti-inflammatories, Tylenol, lidocaine patches as needed to help his symptoms go down. He was given a work note for the next three days, encouraged to rest, to not over exert himself and to follow-up with his primary doctor if he is having any ongoing symptoms. Patient is appropriate and amenable to discharge home. Vital signs are stable on repeat examination is unremarkable. Patient has been informed of results. Patient has been given strict return to ER precautions for any new or worsening symptoms. Patient understands to follow up closely with outpatient providers as instructed. Patient understands plan and agrees to discharge home. All questions and concerns answered at this time. Discharge Plan Departure Patient Disposition: Home Clinical Impression: Low back pain radiating to right lower extremity Instructions: DI for Back Pain With Sciatica Activity Restrictions/Additional Instructions: *You have been diagnosed with low back pain with sciatica symptoms down your right leg. Please try not to over exert yourself over the next three days. Please rest, take ibuprofen 600 mg every 6 hours with food and water as needed for pain, take Tylenol in addition to this, 650 mg at the same times. You may use a lidocaine patch or topical Voltaren gel to help with your low back pain. The nerve root in your low back is likely irritated causing symptoms down your leg. Please ice, heat, rest but do not stay to sedentary over the next few days. You can do light activity like walking for short periods of time but try to not exacerbate the pain. Hope you feel better soon. *What to do: *Please continue to take your regular medications as directed. [ x] New medication prescriptions sent to your pharmacy: [[facility] ] [ ] New medication written as a paper prescription [ ] No new medications given *Please follow up with your primary care provider in 2-3 days, call for an appointment. Let them know you were seen in the Emergency Department and that we asked that you be seen for follow-up. We will electronically transmit a record of today's note if your PCP is in our system *If you do not have a primary care provider please contact [phone] to establish care with one of the [facility] primary care providers. *Return to Emergency Department if you should have any new, worsening or concerning symptoms, such as [fever greater than 101F, chills, worsening pain, persistent vomiting or other bothersome symptoms] Prescriptions: New lidocaine [Lidoderm] 5 % adhesive patch,medicated 1 patch topical DAILY Qty: 15 0RF Rx Instructions: leave on most painful area for up to 12 hrs ibuprofen 600 mg tablet 600 mg PO Q8H PRN (Reason: pain) Qty: 20 0RF No Action ibuprofen 200 mg Capsule 400 mg PO Q6H PRN (Reason: Pain (Scale Score 4-6)) cyclobenzaprine 5 mg tablet 5 mg PO TID PRN (Reason: muscle spasm) Qty: 10 0RF Referrals: Miscellaneous,Doctor, [Primary Care Provider] - Stand Alone Forms: Work Release Note Visit Report Forms: Patient Portal/API <Lalo Blackwell MD - Last Filed: 09/20/21 12:36> [facility] Patricia Attestation: I was immediately available for consultation of this patient was seen and evaluated by the APC in the department.
== END 2021-09-02 15:31 | disposition home or self-care (01) ==
PROVIDERS: Emergency Provider Nurse Practitioner Critical Care Medicine
DX: M54.41 Lumbago with sciatica, right side (principal); Y93.69 Activity, other involving other sports and athletics played as a team or group
CPT/HCPCS: 96372; 99283; J1885

== ENCOUNTER 2021-10-28 15:24 | Emergency (ER) | payer SELFPAY ==
[2021-10-28 15:37] VITALS: BP 145/93; PULSE 87; RESP 16; TEMP 36.6; O2SAT 100; BMI 43.0
--- NOTE | 2021-10-28 15:45 | DI.RAD.S_ITS ---
PROCEDURE: XR ELBOW RT MIN 3V INDICATIONS: fall yesterday, right elbow pain TECHNIQUE: 4 views of the elbow were acquired. COMPARISON: None. FINDINGS: Bones: No fractures or dislocations. No suspicious bony lesions. Soft tissues: No elbow joint effusion. No suspicious soft tissue calcifications. IMPRESSION: Normal study. Dictated by: Charanjit Pitt M.D. on 10/28/2021 at 16:06 Approved by: Charanjit Pitt M.D. on 10/28/2021 at 16:06
[2021-10-28 17:18] VITALS: O2SAT 97
[2021-10-28 17:19] VITALS: BP 140/81; PULSE 79; O2SAT 97
[2021-10-28 17:30] VITALS: BP 128/70; PULSE 77; O2SAT 97
--- NOTE | 2021-10-28 17:34 | DI.RAD.S_ITS ---
PROCEDURE: XR LUMBAR SPINE 2-3V INDICATIONS: Back pain after fall TECHNIQUE: 3 views of the lumbar spine were acquired. COMPARISON: [facility], CR, XR LUMBAR SPINE 2-3V, 08/27/2019, 13:35. FINDINGS: Bones: There are 5 lumbar type vertebral bodies. Vertebral bodies appear similar compared to 08/27/2019, with no acute fracture or dislocation identified. Mild spondylosis. No spondylolisthesis. Soft tissues: Overlying bowel gas pattern is normal. No suspicious soft tissue calcifications. IMPRESSION: No acute changes compared to 08/27/2019. Mild overall spondylosis. If there is high concern for acute occult injury, consider cross-sectional imaging. Dictated by: Ciro Kern M.D. on 10/28/2021 at 18:22 Approved by: Ciro Kern M.D. on 10/28/2021 at 18:24
[2021-10-28 18:04] VITALS: PULSE 99; O2SAT 96
--- NOTE | 2021-10-28 19:07 | ED.FALL ---
HPI - Fall <Romulo Steward PA-C - Last Filed: 10/28/21 19:46> General Chief Complaint: Fall Stated Complaint: Fall, Back Pain, Hit Head, Rt Elbow Swelling Time Seen by Provider: 10/28/21 17:34 Source: patient Mode of arrival: Family Vehicle History of Present Illness HPI Narrative: Patient is a 18-year-old male presents to the emergency room today with complaint of right elbow right-sided buttock pain that started after he fell in the shower yesterday morning. Describes the pain as a throbbing pain in the elbow and in the lower back. The pain does not radiate and the patient has not taken any medication for the pain. Denies any other concerns at this time. Denies taking any muscle relaxants at this time. Related Data Home Medications Medication Instructions Recorded Confirmed ibuprofen 200 mg capsule 400 mg PO Q6H PRN Pain (Scale 05/31/20 05/31/20 Score 4-6) Previous Rx's Medication Instructions Recorded cyclobenzaprine 5 mg tablet 5 mg PO TID PRN muscle spasm #10 05/31/20 tabs ibuprofen 600 mg tablet 600 mg PO Q8H PRN pain #20 tabs 09/02/21 lidocaine 5 % topical patch 1 patch topical DAILY #15 ea 09/02/21 (Lidoderm) methocarbamol 750 mg tablet 750 mg PO TID #12 tabs 10/28/21 Allergies Allergy/AdvReac Type Severity Reaction Status Date / Time No Known Drug Allergies Allergy Verified 10/28/21 15:42 Review of Systems <Romulo Steward PA-C - Last Filed: 10/28/21 19:46> Review of Systems Narrative: R.O.S.: General: No fever, chills or fatigue. Cardiovascular: No chest pain or palpitations Respiratory: No S.O.B. HEENT: No congestion, ear pain, rhinorrhea, sore throat or tinnitus Gastrointestinal: No nausea or vomiting Skin: No rash or associated abnormalities Neurological: Awake, alert and in not apparent distress. No Headaches, changes in vision or other related neurological concerns. Musculoskeletal: Right elbow and low back pain Patient History <Romulo Steward PA-C - Last Filed: 10/28/21 19:46> Medical History (Updated 10/28/21 @ 19:34 by Romulo Steward PA-C) Chronic back pain Depression Surgical History No pertinent past surgical history Family History Mother Depression Social History Smoking Status: Former smoker alcohol intake: current substance use type: marijuana Smoking Status: Former smoker alcohol intake frequency: 3 or more drinks per day Alcohol type: beer Substance Use Type: marijuana Exam <Romulo Steward PA-C - Last Filed: 10/28/21 19:46> Narrative Exam Narrative: Physical Exam: ? General: normal appearance, well developed, well nourished, alert, and awake. Not in acute distress. ? Head: Normocephalic, no lesions. Chest: Lungs CTAB, no rales, rhonchi or wheezes. ?? Heart: RRR, no murmurs, rubs or gallops. Eyes: PERRLA, EOM's full, conjunctivae clear. ? Neuro: Physiological, no localizing findings, CN3-12 intact. ?? Extremities: Warm, well perfused, FROM, no deformities, no edema. ?? Skin: Normal, no rashes, no lesions noted. ?? PSYCHIATRIC: The mood is good, no blunted affect. Speech is clear. Thought process is linear, thought content is appropriate. The voice is without significant inflection. Musculoskeletal: Patient has bilateral paraspinal tendernes starting at the mid lumbar area and extending to the lower lumbar area. Patient able to stand and tandem walk without concerns. Complete physical exam not done for patient complained of pain. Initial Vital Signs Initial Vital Signs: Vital Signs Temperature 98 F 10/28/21 15:37 Pulse Rate 87 10/28/21 15:37 Respiratory Rate 16 10/28/21 15:37 Blood Pressure 145/93 H 10/28/21 15:37 Pulse Oximetry 100 10/28/21 15:37 Oxygen Delivery Method 10/28/21 15:37 <Oscar Ford DO - Last Filed: 10/29/21 01:02> Initial Vital Signs Initial Vital Signs: Vital Signs Temperature 98 F 10/28/21 15:37 Pulse Rate 87 10/28/21 15:37 Respiratory Rate 16 10/28/21 15:37 Blood Pressure 145/93 H 10/28/21 15:37 Pulse Oximetry 100 10/28/21 15:37 Oxygen Delivery Method 10/28/21 15:37 <Chanda Power DO - Last Filed: 10/29/21 09:04> Initial Vital Signs Initial Vital Signs: Vital Signs Temperature 98 F 10/28/21 15:37 Pulse Rate 87 10/28/21 15:37 Respiratory Rate 16 10/28/21 15:37 Blood Pressure 145/93 H 10/28/21 15:37 Pulse Oximetry 100 10/28/21 15:37 Oxygen Delivery Method 10/28/21 15:37 Course <Romulo Steward PA-C - Last Filed: 10/28/21 19:46> Orders Ordered: Discontinued Medications Ketorolac Tromethamine (Ketorolac 30 Mg/Ml Vial) 15 mg IM NOW ONE Stop: 10/28/21 19:21 Last Admin: 10/28/21 19:25 Dose: 15 mg Documented By: ANDRZEJ Ketorolac Tromethamine (Ketorolac 30 Mg/Ml Vial) 15 mg IM NOW ONE Stop: 10/28/21 19:22 Last Admin: 10/28/21 19:33 Dose: Not Given Documented By: ANDRZEJ Methocarbamol (Methocarbamol 500 Mg Tablet) 750 mg PO NOW ONE Stop: 10/28/21 19:44 Last Admin: 10/28/21 19:47 Dose: 750 mg Documented By: ANDRZEJ Vital Signs Vital signs: Vital Signs - 8 hr 10/28/21 17:18 10/28/21 17:19 10/28/21 17:19 Pulse Rate 79 Respiratory Rate Blood Pressure 140/81 Pulse Oximetry 97 97 Oxygen Delivery Method 10/28/21 17:30 10/28/21 17:30 10/28/21 18:04 Pulse Rate 77 99 H Respiratory Rate Blood Pressure 128/70 Pulse Oximetry 97 96 Oxygen Delivery Method 10/28/21 20:01 Pulse Rate 85 Respiratory Rate 18 Blood Pressure 167/98 H Pulse Oximetry 96 Oxygen Delivery Method Room Air <Oscar Ford DO - Last Filed: 10/29/21 01:02> Orders Ordered: Discontinued Medications Ketorolac Tromethamine (Ketorolac 30 Mg/Ml Vial) 15 mg IM NOW ONE Stop: 10/28/21 19:21 Last Admin: 10/28/21 19:25 Dose: 15 mg Documented By: ANDRZEJ Ketorolac Tromethamine (Ketorolac 30 Mg/Ml Vial) 15 mg IM NOW ONE Stop: 10/28/21 19:22 Last Admin: 10/28/21 19:33 Dose: Not Given Documented By: ANDRZEJ Methocarbamol (Methocarbamol 500 Mg Tablet) 750 mg PO NOW ONE Stop: 10/28/21 19:44 Last Admin: 10/28/21 19:47 Dose: 750 mg Documented By: ANDRZJE Vital Signs Vital signs: Vital Signs - 8 hr 10/28/21 17:18 10/28/21 17:19 10/28/21 17:19 Pulse Rate 79 Respiratory Rate Blood Pressure 140/81 Pulse Oximetry 97 97 Oxygen Delivery Method 10/28/21 17:30 10/28/21 17:30 10/28/21 18:04 Pulse Rate 77 99 H Respiratory Rate Blood Pressure 128/70 Pulse Oximetry 97 96 Oxygen Delivery Method 10/28/21 20:01 Pulse Rate 85 Respiratory Rate 18 Blood Pressure 167/98 H Pulse Oximetry 96 Oxygen Delivery Method Room Air <Chanda Power, - Last Filed: 10/29/21 09:04> Orders Ordered: Discontinued Medications Ketorolac Tromethamine (Ketorolac 30 Mg/Ml Vial) 15 mg IM NOW ONE Stop: 10/28/21 19:21 Last Admin: 10/28/21 19:25 Dose: 15 mg Documented By: ANDRZEJ Ketorolac Tromethamine (Ketorolac 30 Mg/Ml Vial) 15 mg IM NOW ONE Stop: 10/28/21 19:22 Last Admin: 10/28/21 19:33 Dose: Not Given Documented By: ANDRZEJ Methocarbamol (Methocarbamol 500 Mg Tablet) 750 mg PO NOW ONE Stop: 10/28/21 19:44 Last Admin: 10/28/21 19:47 Dose: 750 mg Documented By: ANDRZEJ Vital Signs Vital signs: Vital Signs - 8 hr 10/28/21 17:18 10/28/21 17:19 10/28/21 17:19 Pulse Rate 79 Respiratory Rate Blood Pressure 140/81 Pulse Oximetry 97 97 Oxygen Delivery Method 10/28/21 17:30 10/28/21 17:30 10/28/21 18:04 Pulse Rate 77 99 H Respiratory Rate Blood Pressure 128/70 Pulse Oximetry 97 96 Oxygen Delivery Method 10/28/21 20:01 Pulse Rate 85 Respiratory Rate 18 Blood Pressure 167/98 H Pulse Oximetry 96 Oxygen Delivery Method Room Air MDM - Fall <Romulo Steward PA-C - Last Filed: 10/28/21 19:46> Imaging Data Extremity x-ray #1: Radiologist's Impression: PROCEDURE:? XR ELBOW RT MIN 3V ? INDICATIONS:? fall yesterday, right elbow pain ? TECHNIQUE:? 4 views of the elbow were acquired.? ? COMPARISON:? None. ? FINDINGS:? ? Bones:? No fractures or dislocations.? No suspicious bony lesions.? ? Soft tissues:? No elbow joint effusion.? No suspicious soft tissue calcifications.? ? ? IMPRESSION:? Normal study. ? ? Dictated by: Charanjit Pitt M.D. on 10/28/2021 at 16:06 ? ? Approved by: Charanjit Pitt M.D. on 10/28/2021 at 16:06 ? Extremity x-ray #2: Radiologist's Impression: PROCEDURE:? XR LUMBAR SPINE 2-3V ? INDICATIONS:? Back pain after fall ? TECHNIQUE:? 3 views of the lumbar spine were acquired.? ? COMPARISON:? [facility], , XR LUMBAR SPINE 2-3V, 08/27/2019, 13:35. ? FINDINGS:? ? Bones:? There are 5 lumbar type vertebral bodies.? Vertebral bodies appear similar compared to 08/27/2019, with no acute fracture or dislocation identified.? Mild spondylosis.? No spondylolisthesis. ? Soft tissues:? Overlying bowel gas pattern is normal.? No suspicious soft tissue calcifications.? ? ? IMPRESSION:? No acute changes compared to 08/27/2019.? Mild overall spondylosis.? If there is high concern for acute occult injury, consider cross-sectional imaging.? ? ? Dictated by: Ciro Kern M.D. on 10/28/2021 at 18:22 ? ? Approved by: Ciro Kern M.D. on 10/28/2021 at 18:24 ? [facility] Narrative Medical decision making narrative: Patient is a 18-year-old male presents to the emergency room today complaining right elbow and right low back pain starting after he fell in the shower yesterday. Denies any trauma to the head or any trauma. Not taking any medicines for pain. Right elbow in lumbar spine views were negative for acute injury. 15 mg Toradol IM was ordered for pain. Patient to be discharged home with muscle relaxers and plan to follow up with his primary care provider should concerns arise prior. Discharge Plan Departure Patient Disposition: Home Clinical Impression: Fall, Elbow pain, right, Low back pain Instructions: Low Back Pain, How to Prevent Falls Activity Restrictions/Additional Instructions: *You have been diagnosed with [right elbow pain and low back pain after a fall. I have ordered Toradol in the emergency room for your back pain. I ordered muscle relaxers for you to take for this acute injury with the next few days.. X-rays of the elbow and low back were negative at this time. Please return to the emergency room for any emergent concerns arise. No includes report to your primary care provider for any non emergent concerns.] *What to do: *Please continue to take your regular medications as directed. [x] New medication prescriptions sent to your pharmacy: [ ] [ ] New medication written as a paper prescription [ ] No new medications given *Please follow up with your primary care provider in 2-3 days, call for an appointment. Let them know you were seen in the Emergency Department and that we ask that you be seen in follow up. We will electronically transmit a record of today's note if your PCP is in our system *If you do not have a primary care provider please contact the [facility] Resource line at [phone]. They will ask some questions about your medical history and help get you set up with a doctor in the community. *Return to Emergency Department if you should have any new, worsening or concerning symptoms, such as [fever greater than 101 F, shaking chills, worsening pain, persistent vomiting or other bothersome symptoms] Prescriptions: New methocarbamol 750 mg tablet 750 mg PO TID Qty: 12 0RF No Action ibuprofen 200 mg Capsule 400 mg PO Q6H PRN (Reason: Pain (Scale Score 4-6)) cyclobenzaprine 5 mg tablet 5 mg PO TID PRN (Reason: muscle spasm) Qty: 10 0RF lidocaine [Lidoderm] 5 % adhesive patch,medicated 1 patch topical DAILY Qty: 15 0RF Rx Instructions: leave on most painful area for up to 12 hrs ibuprofen 600 mg tablet 600 mg PO Q8H PRN (Reason: pain) Qty: 20 0RF Referrals: Miscellaneous,Doctor, MD [Primary Care Provider] - Stand Alone Forms: Work Release Note Visit Report Forms: Patient Portal/API <Oscar Ford DO - Last Filed: 10/29/21 01:02> [facility] ED Attending Patricia Attestation: I was immediately available in the department for consultation. This documentation has been reviewed and I agree with assessment and plan. Supervised by Oscar Ford DO <Chanda Power DO - Last Filed: 10/29/21 09:04> [facility] ED Attending Patricia Attestation: I was immediately available in the department for consultation. This documentation has been reviewed and I agree with assessment and plan. Supervised by DO anusha Fatima 10/29/21: Patient was not seen by myself or reviewed with myself. Patient was under other provider and my na was accidentally assigned.
[2021-10-28] MEDS: KETOROLAC 30 MG/ML VIAL 15 MG IM (19:25)
[2021-10-28] MEDS: methocarbamoL 500 MG TABLET 750 MG PO (19:47)
--- NOTE | 2021-10-28 19:49 | PC.NURSE ---
Per provider pt given methocarbamol 750 mg to take at home.
[2021-10-28 20:01] VITALS: BP 167/98; PULSE 85; RESP 18; O2SAT 96
== END 2021-10-28 20:02 | disposition home or self-care (01) ==
PROVIDERS: Emergency Provider Physician Assistant
DX: M25.521 Pain in right elbow (principal); M54.50 Low back pain, unspecified; W19.XXXA Unspecified fall, initial encounter
CPT/HCPCS: 72100; 73080; 96372; 99283; 99284; J1885

== ENCOUNTER 2021-11-15 10:04 | Emergency (ER) | payer SELFPAY ==
[2021-11-15 10:16] VITALS: BP 133/77; PULSE 87; RESP 17; TEMP 36.6; O2SAT 98; BMI 45.9
--- NOTE | 2021-11-15 10:40 | ED.BACK ---
HPI - Back Pain/Injury General Chief Complaint: Back Pain/Injury Stated Complaint: Back pain after fall, 11-12 pain scale Time Seen by Provider: 11/15/21 10:15 Source: patient History of Present Illness HPI Narrative: Patient is a 26-year-old male presents today with back pain all across his lower back. He actually fell in the shower on in October 28. At that time he landed on his right elbow. He was actually seen and evaluated at that time. X-ray of lumbar spine and elbow were done. He says that he has gradually improved. He was doing well yesterday. However today today woke up and has severe pain all across his lower back. No changes in bowel or bladder habits. No numbness or tingling down his legs. He took ibuprofen last night has not taken any this morning. He previously was prescribed methocarbamol which he said did not help. He also says the generic brand of ibuprofen does not help, however Toradol is okay Related Data Previous Rx's Medication Instructions Recorded ibuprofen 600 mg tablet 600 mg PO Q8H PRN pain #20 tabs 09/02/21 diazepam 5 mg tablet (Valium) 5 mg PO Q12HR PRN muscle spasm #10 11/15/21 tabs hydrocodone 5 mg-acetaminophen 325 1 tab PO Q6H PRN pain #10 tabs 11/15/21 mg tablet Allergies Allergy/AdvReac Type Severity Reaction Status Date / Time No Known Drug Allergies Allergy Verified 11/15/21 10:21 Review of Systems Review of Systems Narrative: GENERAL: Denies chills,fever HEENT: Denies throat pain RESPIRATORY: Denies dyspnea, cough, wheezing CARDIOVASCULAR: Denies chest pain, palpitations GASTROINTESTINAL: Denies nausea, vomiting MUSCULOSKELETAL: See HPI SKIN: No rash, no laceration, no pruritus NEUROLOGIC: Denies weakness, dizziness, headache, numbness 8 point review of systems is negative except for those stated above and HPI Patient History Medical History (Updated 11/15/21 @ 11:34 by Terri Lott DO) Chronic back pain Depression Surgical History No pertinent past surgical history Family History Mother Depression Social History Smoking Status: Current some day smoker alcohol intake: current substance use type: marijuana Smoking Status: Current some day smoker tobacco type: cigars alcohol intake frequency: a few times a week Alcohol type: beer Substance Use Type: marijuana Exam Initial Vital Signs Initial Vital Signs: Vital Signs Temperature 97.8 F 11/15/21 10:16 Pulse Rate 87 11/15/21 10:16 Respiratory Rate 17 11/15/21 10:16 Blood Pressure 133/77 11/15/21 10:16 Pulse Oximetry 98 11/15/21 10:16 Oxygen Delivery Method 11/15/21 10:16 GENERAL: Alert 26-year-old male BMI 45 CARDIOVASCULAR: peripheral pulses in tact, cap refill <2 sec RESPIRATORY: No respiratory distress, speaks in full sentences without difficulty BACK: No vertebral tenderness no step-offs tender in lower lumbar area bilaterally EXTREMITIES: Normal range of motion, no clubbing or edema. Neurovascularly intact NEUROLOGICAL: Cranial nerves II through XII grossly intact. Normal gait and speech. Lifting each leg reproduces back pain SKIN: Warm, dry, no petechiae, no rashes or lesions. Course Orders Ordered: Discontinued Medications Hydrocodone Bitart/Acetaminophen (Hydrocodone/Acet 5/325 Tablet) 2 tab PO NOW ONE Stop: 11/15/21 11:36 Last Admin: 11/15/21 11:44 Dose: 2 tab Documented By: MARY Diazepam (Diazepam 5 Mg Tablet) 10 mg PO NOW ONE Stop: 11/15/21 10:37 Last Admin: 11/15/21 10:47 Dose: 10 mg Documented By: MARY Ketorolac Tromethamine (Ketorolac 30 Mg/Ml Vial) 30 mg IM NOW ONE Stop: 11/15/21 10:37 Last Admin: 11/15/21 10:45 Dose: 30 mg Documented By: MARY Vital Signs Vital signs: Vital Signs - 8 hr 11/15/21 10:16 Temperature 97.8 F Pulse Rate 87 Respiratory Rate 17 Blood Pressure 133/77 Pulse Oximetry 98 Oxygen Delivery Method Room Air MDM - Back Pain/Injury MDM Narrative Medical decision making narrative: The patient is feeling a bit better after Valium and Toradol. He did not fall again today x-ray a couple weeks ago was negative. At this time I see no need for further imaging. Given [place] in the ED as well and prescription for Valium and [place]. Discharge Plan Departure Patient Disposition: Home Clinical Impression: Back pain Instructions: DI for Back Spasm Activity Restrictions/Additional Instructions: *You have been diagnosed with back pain *What to do: At this time I do recommend *Continue to take medications as directed Motrin 800 mg every 8 hours Valium 10 mg every 12 hours if needed for muscle spasm [place] 1 tablet every 6 hours if needed for severe pain *Follow up with your primary care provider in 2-3 days or call [phone] *Return to ER if you should have increasing pain numbness tingling weakness change in the bowel or bladder habits or any new, worsening or concerning symptoms CONTROLLED SUBSTANCE DISCHARGE (Narcotoic/benzodiazepine/Flexeril/Phenergan) 1. You have been prescribed narcotic medications, it does have acetaminophen/Tylenol/paracetamol in it, DO NOT TAKE MORE THAN 4,00mg in 24 hours of Tylenol. TRAMADOL DOES NOT CONTAIN TYLENOL 2. Please understand that we cannot provide further refills of narcotics, benzodiazepines or controlled substances through the ED and her pain management will need to be through your provider. 3. While on these medications you cannot drive or operate heavy machinery. 4. You cannot sign legal documents or perform any duties such as this. 5. As long as you're taking opiate pain medications he should also be taking a stool softener such as Colace, Dulcolax, MiraLAX or prune juice, to help avoid constipation. Prescriptions: New hydrocodone-acetaminophen 5-325 mg tablet 1 tab PO Q6H PRN (Reason: pain) Qty: 10 0RF diazepam [Valium] 5 mg tablet 5 mg PO Q12HR PRN (Reason: muscle spasm) Qty: 10 0RF No Action ibuprofen 600 mg tablet 600 mg PO Q8H PRN (Reason: pain) Qty: 20 0RF Referrals: Miscellaneous,Doctor, MD [Primary Care Provider] - Stand Alone Forms: Work Release Note Visit Report Forms: Patient Portal/API
[2021-11-15] MEDS: KETOROLAC 30 MG/ML VIAL IM (10:45)
[2021-11-15] MEDS: diazePAM 5 MG TABLET 10 MG PO (10:47)
[2021-11-15] MEDS: HYDROCODONE/ACET 5/325 TABLET 2 TAB PO (11:44)
== END 2021-11-15 11:48 | disposition home or self-care (01) ==
PROVIDERS: Emergency Provider Emergency Medicine
DX: M54.50 Low back pain, unspecified (principal)
CPT/HCPCS: 96372; 99283; J1885